=== PATIENT | male | born 1985 | race Caucasian/White ===

== ENCOUNTER 2021-11-09 09:15 | Day surgery (SDC) | payer OTHER ==
[2021-11-07 14:25] VITALS: BMI 27.6
--- NOTE | 2021-11-08 17:57 | P.GSHP ---
History of Present Illness H&P Date: 11/09/21 Chief Complaint: Pilonidal cyst 36-year-old male seen in the office in September. Patient with a history of pilonidal cyst symptoms for the last 12 years or so. Says he has had his pilonidal cyst abscess last in the ER approximately 8-10 times over the years. He had an excisional surgery performed 2-3 years ago at an outside institution. Unfortunately his symptoms recurred approximately 1 year later. This generated the patient had a reexcision of the pilonidal cyst. Closure was performed both times. After this most recent episode he started having drainage very shortly after the procedure. Now having intermittent flareups with intermittent episodes of drainage and pain. No fevers. No recent antibiotic use. Past Medical History Past Medical History: GERD/Reflux, Osteoarthritis (OA), Pneumonia History of Any Multi-Drug Resistant Organisms: None Reported Additional Past Surgical History / Comment(s): pilonidal cyst surgery x 2, oral surgery Past Anesthesia/Blood Transfusion Reactions: No Reported Reaction Smoking Status: Current every day smoker - Past Family History Mother Family Medical History: No Reported History Medications and Allergies Home Medications Medication Instructions Recorded Confirmed Type Acetaminophen [Tylenol] 500 mg PO DIRECTED PRN 11/07/21 11/07/21 History Dicyclomine [Bentyl] 10 mg PO TID 11/07/21 11/07/21 History Prilosec(Dose Unknown) 1 tab PO 1800 11/07/21 11/07/21 History Vit D (Dose Unknown) 1 tab PO MO 11/07/21 11/07/21 History Allergies Allergy/AdvReac Type Severity Reaction Status Date / Time No Known Allergies Allergy Verified 11/07/21 14:16 Surgical - Exam Physical exam: General: Well-developed, well-nourished HEENT: Normocephalic, sclerae nonicteric Abdomen: Nontender, nondistended Extremities: No edema, pilonidal region with previous scar noted, small wound present in the mid aspect of the incision with purulent drainage, wound measures 3-4 mm in diameter. There is some induration and elevation of the tissues in that area with diffuse tenderness that is mild to moderate in severity. No erythema. There is a second area of sinus opening at the most inferior aspect of the previous scar. Neuro: Alert and oriented Assessment and Plan (1) Pilonidal cyst Narrative/Plan: 36-year-old male with recurrent pilonidal disease. Options discussed with the patient. We'll proceed with excision recurrent pilonidal cyst with plans to leave the wound open at this time. Risks of bleeding, infection, scarring, poor wound healing, recurrence, chronic wound formation, pain, numbness reviewed. Patient understands would like to proceed. Status: Acute Code(s): L05.91 - PILONIDAL CYST WITHOUT ABSCESS SNOMED Code(s): 19443851
[~2021-11-09 09:15] MED LIST: ACETAMINOPHEN TAB 500 MG TAB PO PRN; HEPARIN SODIUM,PORCINE/PF 5,000 UNIT/0.5 ML SYRINGE SQ PRN; metroNIDAZOLE-NS PMX 500 MG in SALINE 1 100ML.BAG IVPB PRN
[2021-11-09] MEDS ORDERED: LACTATED RINGERS 1,000 ML IV SCH (09:26)
[2021-11-09] MEDS ORDERED: MIDAZOLAM 2 MG/2 ML VIAL IV PRN (09:26)
[2021-11-09] MEDS ORDERED: DEXAMETHASONE SOD PHOSPHATE 4 MG/ML 1 ML VIAL IV ONE (09:26)
[2021-11-09] MEDS ORDERED: ONDANSETRON 4 MG/2 ML VIAL IVP ONE (09:26)
[2021-11-09] MEDS ORDERED: SCOPOLAMINE 1.5MG/72HR PATCH TRANSDERM ONE (09:26)
[2021-11-09 09:45] VITALS: RESP 16
[2021-11-09] MEDS ORDERED: LIDOCAINE 1% INJ 10MG/ML (20 ML MDV) ONE (11:57)
[2021-11-09] MEDS ORDERED: .fentaNYL (PF) 50 MCG/ML 2 ML AMP ONE (11:57)
[2021-11-09] MEDS ORDERED: PROPOFOL 10 MG/ML 20 ML VIAL IV ONE (11:57)
[2021-11-09] MEDS ORDERED: KETAMINE 10 MG/ML 20 ML VIAL ONE (11:57)
[2021-11-09] MEDS ORDERED: SUCCINYLCHOLINE CHLORIDE 100 MG/5 ML SYR IV ONE (11:57)
[2021-11-09] MEDS ORDERED: MIDAZOLAM 2 MG/2 ML VIAL ONE (11:57)
[2021-11-09] MEDS ORDERED: BUPIVACAINE (PF) 0.25% 30 ML VIAL SQ ONE (12:29)
[2021-11-09] MEDS ORDERED: LACTATED RINGERS 1,000 ML IV ONE (12:42)
[2021-11-09] MEDS: HYDROmorphone 0.5 MG/0.5 ML SYRINGE IVP PRN ×5 (13:07→13:44)
[2021-11-09 13:10] VITALS: TEMP 96.8
[2021-11-09] MEDS ORDERED: HYDROcodone/APAP 5-325MG 1 EACH TAB PO PRN (13:22)
[2021-11-09] MEDS ORDERED: NALOXONE 0.4 MG/ML 1 ML VIAL IV PRN (13:22)
[2021-11-09] MEDS ORDERED: HYDROmorphone 0.5 MG/0.5 ML SYRINGE IVP PRN (13:22)
--- NOTE | 2021-11-09 13:26 | P.OP ---
Date of Procedure: 11/09/21 Procedure(s) Performed: PREOPERATIVE DIAGNOSIS: Recurrent pilonidal cyst POSTOPERATIVE DIAGNOSIS: Same PROCEDURE: Pilonidal cystectomy SURGEON: Hitesh CHOUDHURYL: Minimal ANESTHESIA: General COMPLICATIONS: None OPERATIVE PROCEDURE: Patient was placed prone on the operating table after general anesthesia was achieved. The gluteal crease was prepped and draped in usual sterile fashion after the patient was placed in the prone jackknife position. The previous scar and the area of induration and the large sinus o pening inferiorly were excised sharply. The subcutaneous tissues were divided using electrocautery. Some extension of the cyst cavity with purulence extended to the right superior aspect of our dissection. This was fully excised. Cultures were taken. The area was irrigated with saline. There was no extension to the underlying fascia overlying the sacrum or coccyx. Because of the recurrent nature we had already decided to leave this wound open. After irrigating and localizing the operative site the wound was packed with Amee roll gauze lightly moistened with saline. Sterile water dressings were then applied. DISPOSITION: Stable to recovery room
[2021-11-09] MEDS ORDERED: HYDROcodone/APAP 7.5-325MG 1 EACH TAB ONE (14:29)
[2021-11-09] MEDS ORDERED: HYDROcodone/APAP 7.5-325MG 1 EACH TAB PO ONE (14:30)
[2021-11-09 16:30] VITALS: BP 138/87; PULSE 62
== END 2021-11-09 16:32 | disposition home or self-care (01) ==
LOC: OR 09:15
PROVIDERS: ATTEND Surgery
DX: L05.91 Pilonidal cyst without abscess (principal); K21.9 Gastro-esophageal reflux disease without esophagitis; M19.90 Unspecified osteoarthritis, unspecified site; F17.210 Nicotine dependence, cigarettes, uncomplicated; Z79.899 Other long term (current) drug therapy
CPT/HCPCS: 87070; 87205; 87075; 11770; J2250; J1100; J2405; J2001; J3010; J0330; J2704; J1170; J1644; 88304

== ENCOUNTER 2022-05-08 10:36 | Day surgery (SDC) | payer OTHER ==
[2022-05-07 11:23] VITALS: BMI 27.1
[~2022-05-08 10:36] MED LIST changes: -ACETAMINOPHEN TAB 500 MG TAB PO PRN; -HEPARIN SODIUM,PORCINE/PF 5,000 UNIT/0.5 ML SYRINGE SQ PRN; +LACTATED RINGERS 1,000 ML IV SCH; +LIDOCAINE 1% (10MG/ML) FOR IV START INTRADERMA PRN; -metroNIDAZOLE-NS PMX 500 MG in SALINE 1 100ML.BAG IVPB PRN
[2022-05-08 11:01] VITALS: TEMP 98.1
[2022-05-08] MEDS ORDERED: MIDAZOLAM 2 MG/2 ML VIAL ONE (11:45)
[2022-05-08] MEDS ORDERED: PROPOFOL 10 MG/ML 20 ML VIAL IV ONE (11:45)
[2022-05-08] MEDS ORDERED: LIDOCAINE 2% INJ 20 MG/ML (2 ML VIAL) ONE (11:45)
--- NOTE | 2022-05-08 11:57 | P.PCN ---
Date of Procedure: 05/08/22 Procedure(s) Performed: BRIEF HISTORY: Patient is a 36-year-old pleasant white male scheduled for an elective colonoscopy as a part of the last 1 year duration. He has bowel movements anywhere from 10-15 a day which are loose to watery in consistency but no blood or mucus in the stool. He was started on Lomotil 3 weeks ago and since then his symptoms are gradually improving. Scheduled for colonoscopy to rule out inflammatory bowel PROCEDURE PERFORMED: Colonoscopy with random biopsies. PREOPERATIVE DIAGNOSIS: Chronic diarrhea of 1 year duration. IV sedation per Anesthesia. PROCEDURE: After informed consent was obtained, the patient, was brought into the endoscopy unit. IV sedation was administered by Anesthesia under continuous monitoring. Digital rectal examination was normal. Initially the Olympus CF-160 flexible video colonoscope was then inserted in the rectum, gradually advanced i nto the cecum without any difficulty. Careful examination was performed as the scope was gradually being withdrawn. Ileocecal valve and the appendiceal orifice were visualized and appeared normal. Prep was excellent. Terminal ileum appeared normal.Biopsies were done from the terminal ileum. Mucosa of the cecum, ascending colon, transverse colon, descending colon, sigmoid colon, and rectum appeared normal. Retroflexion was performed in the rectum and no lesions were seen. Biopsies were done from ascending and descending colon to rule out microscopic/collagenous colitis. The patient tolerated the procedure well. IMPRESSION: Normal-appearing colon from rectum to cecum with no evidence of colitis or colorectal neoplasia . Normal-appearing terminal ileum. RECOMMENDATIONS: Findings of this examination were discussed with the patient as well as his family. He was advised to follow with the biopsy results. He will continue with Lomotil as needed..
[2022-05-08 12:37] VITALS: BP 150/93; PULSE 58; RESP 15
== END 2022-05-08 12:55 | disposition home or self-care (01) ==
LOC: ORWHC2ENDO 10:36
PROVIDERS: ATTEND Internal Medicine Gastroenterology
DX: R19.7 Diarrhea, unspecified (principal); F17.210 Nicotine dependence, cigarettes, uncomplicated; Z79.899 Other long term (current) drug therapy; Z88.8 Allergy status to other drugs, medicaments and biological substances; Z98.890 Other specified postprocedural states
CPT/HCPCS: 88305; 45380; J2250; J2704; J2001

== ENCOUNTER 2025-03-23 15:18 | Observation (INO) | payer OTHER ==
[2025-03-23] MEDS: HYDROmorphone 1 MG/ML 1 ML SYRINGE IVP STA ×2 (16:29→18:15)
[2025-03-23] MEDS: METOCLOPRAMIDE 5 MG/ML 2 ML VIAL IVP STA (16:29)
[2025-03-23] MEDS: diphenhydrAMINE 50 MG/ML 1 ML VIAL IVP STA (16:29)
[2025-03-23 16:34] LABS: Basophils # (A) 0.04 10*3/uL (0.00-0.10); Basophils % (A) 0.2 %; HCT 47.6 % (39.6-50.0); HGB 16.9 g/dL (13.0-17.0); Immature Platelet Fraction 15.6 % (1.1-6.1); Lymphocytes # (A) 1.41 10*3/uL (0.90-5.00); Lymphocytes % (A) 7.6 %; MCH 32.7 pg (27.0-32.0); MCHC 35.5 g/dL (32.0-37.0); MCV 92.1 fL (80.0-97.0); Mean Platelet Volume 13.5 fL (9.5-12.2); Monocytes # (A) 0.86 10*3/uL (0.20-1.00); Monocytes % (A) 4.7 %; Neutrophils % (A) 87.1 %; Platelet Count 173 10*3/uL (140-440); RBC 5.17 10*6/uL (4.40-5.60); RDW 12.7 % (11.5-14.5); WBC 18.49 10*3/uL (4.50-10.00)
[2025-03-23 16:45] LABS: ALT 37 U/L (4-49); AST 35 U/L (17-59); African American GFR (CKD) >90 (>60 ml/min/1.73 sqM); Alkaline Phosphatase 133 U/L (38-126); Amylase 142 U/L (30-110); Anion Gap 16 mmol/L; Blood Urea Nitrogen 19 mg/dL (9-20); Calcium 10.3 mg/dL (8.4-10.2); Carbon Dioxide 25 mmol/L (22-30); Chloride 97 mmol/L (98-107); Glucose 180 mg/dL (74-99); Non-African American GFR(CKD) >90 (>60 ml/min/1.73 sqM); Sodium 138 mmol/L (137-145); Total Bilirubin 0.8 mg/dL (0.2-1.3); Total Protein 8.3 g/dL (6.3-8.2)
[2025-03-23] MEDS: LACTATED RINGERS 1,000 ML IV SCH (16:45)
[2025-03-23 16:54] LABS: Lipase 2887 U/L (23-300)
--- NOTE | 2025-03-23 17:49 | CT ---
EXAMINATION TYPE: CT abdomen pelvis w con DATE OF EXAM: 03/23/2025 5:24 PM COMPARISON: None CLINICAL INDICATION: Male, 39 years old with history of diffuse abd pain; Pt arrives with c/o abdomin al pain that started this morning. TECHNIQUE: Axial CT abdomen pelvis w con;Sagittal and coronal reformats were created on a separate w orkstation. Contrast used:100 ml mL of Isovue 300 with IV Contrast, (none if empty) Oral contrast used: without Oral Contrast (none if empty) CT DLP: 932.3 mGycm, Automated exposure control for dose reduction was used. FINDINGS: LOWER CHEST: Unremarkable ABDOMEN LIVER: Unremarkable GALLBLADDER AND BILE DUCTS: No evidence for cholelithiasis or choledocholithiasis. PANCREAS: There is fluid around the pancreas and duodenum. Heterogenous appearance of the pancreas pa renchyma. SPLEEN: Unremarkable. ADRENAL GLANDS: Unremarkable. KIDNEYS AND URETERS: No evidence of hydronephrosis or obstructing renal calculus. The ureters are unr emarkable. PELVIS BLADDER: No evidence for wall thickening or mass given limitations of exam. REPRODUCTIVE: Unremarkable. ABDOMEN & PELVIS STOMACH AND BOWEL: No evidence of bowel obstruction. The appendix is normal. PERITONEUM/RETROPERITONEUM: No evidence of pneumoperitoneum or free fluid. VASCULATURE: No evidence of aortic aneurysm. MUSCULOSKELETAL: No acute osseous abnormalities LYMPH NODES: No gross evidence for lymphadenopathy. SOFT TISSUE/ABDOMINAL WALL: Fat-containing umbilical hernia. IMPRESSION: Extensive fluid around the pancreas and duodenum correlate for pancreatitis with serum lipase. No veto dence for choledocholithiasis. [facility], , 03/23/2025 5:47 PM
--- NOTE | 2025-03-23 18:23 | ED ---
Abdominal Pain HPI - General Chief Complaint: Abdominal Pain Stated Complaint: Abd Pain Time Seen by Provider: 03/23/25 15:25 Source: patient Mode of arrival: wheelchair Limitations: no limitations - History of Present Illness Initial Comments: 39-year-old male with history of alcohol abuse who presents to the emergency department reporting nausea, vomiting and diffuse abdominal pain. 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 His significant other is at bedside and states that the patient has been drinking heavily for the past 2 days. Patient has not drink anything today. He has had several episodes of nonbilious, nonbloody vomiting. Also reports to diffuse generalized abdominal pain. He did not take anything at home before coming in. No fevers. No history of abdominal surgeries. Denies any changes in his bowel or bladder habits. No other alleviating, precipitating or modifying factors - Related Data Home Medications Medication Instructions Recorded Confirmed Pantoprazole Sodium [Protonix] 20 mg PO DAILY 03/23/25 03/23/25 traZODone HCL 150 mg PO HS 03/23/25 03/23/25 Previous Rx's Medication Instructions Recorded Docusate [Colace] 100 mg PO BID #60 cap 03/26/25 HYDROcodone/APAP 5-325MG [[place] 1 tab PO Q6HR PRN 3 Days #12 tab 03/26/25 5-325] Nicotine 14Mg/24Hr Patch [Habitrol] 1 patch TRANSDERM DAILY #7 patch 03/26/25 Allergies Allergy/AdvReac Type Severity Reaction Status Date / Time No Known Allergies Allergy Verified 03/23/25 16:49 Review of Systems ROS Statement: Those systems with pertinent positive or pertinent negative responses have been documented in the HPI. ROS Other: All systems not noted in ROS Statement are negative. Past Medical History Past Medical History: GERD/Reflux, Osteoarthritis (OA), Pneumonia History of Any Multi-Drug Resistant Organisms: None Reported Additional Past Surgical History / Comment(s): Pilonidal cyst surgery X3, oral surgery. Past Anesthesia/Blood Transfusion Reactions: No Reported Reaction Past Psychological History: No Psychological Hx Reported Smoking Status: Current every day smoker Past Alcohol Use History: Occasional Past Drug Use History: Marijuana - Past Family History Mother Family Medical History: No Reported History General Exam Limitations: no limitations General appearance: alert, in no apparent distress Head exam: Present: atraumatic, normocephalic, normal inspection Eye exam: Present: normal appearance, PERRL, EOMI. Absent: scleral icterus, conjunctival injection, periorbital swelling ENT exam: Present: normal exam, mucous membranes moist Neck exam: Present: normal inspection. Absent: tenderness, meningismus, lymphadenopathy Respiratory exam: Present: normal lung sounds bilaterally. Absent: respiratory distress, wheezes, rales, rhonchi, stridor Cardiovascular Exam: Present: regular rate, normal rhythm, normal heart sounds. Absent: systolic murmur, diastolic murmur, rubs, gallop, clicks GI/Abdominal exam: Present: soft, tenderness (epigastric), normal bowel sounds. Absent: distended, guarding, rebound, rigid Extremities exam: Present: normal inspection, full ROM, normal capillary refill. Absent: tenderness, pedal edema, joint swelling, calf tenderness Back exam: Present: normal inspection Neurological exam: Present: alert, oriented X3, CN II-XII intact Psychiatric exam: Present: normal affect, normal mood Skin exam: Present: warm, dry, intact, normal color. Absent: rash Course Vital Signs 03/23/25 03/23/25 03/23/25 15:19 18:21 21:00 Temperature 97.5 F L Pulse Rate 66 71 63 Respiratory 16 16 18 Rate Blood Pressure 194/108 201/119 204/131 O2 Sat by Pulse 100 99 99 Oximetry 03/24/25 03/24/25 03/24/25 00:00 04:00 05:00 Temperature Pulse Rate 94 73 Respiratory 17 17 Rate Blood Pressure 171/115 166/112 156/106 O2 Sat by Pulse 98 95 Oximetry 03/24/25 03/24/25 03/24/25 06:00 06:36 07:00 Temperature Pulse Rate 101 H 101 H Respiratory 18 17 Rate Blood Pressure 159/108 151/100 142/96 O2 Sat by Pulse 96 98 Oximetry 03/24/25 03/24/25 03/24/25 09:30 14:30 17:28 Temperature 98.7 F Pulse Rate 96 100 71 Respiratory 18 16 17 Rate Blood Pressure 159/112 152/93 133/101 O2 Sat by Pulse 98 97 97 Oximetry Medical Decision Making - Medical Decision Making Was pt. sent in by a medical professional or institution (, PA, FUNERAL DIRECTOR/EMBALMER/OWNER, urgent care, hospital, or fci...) When possible be specific @ -No Did you speak to anyone other than the patient for history (EMS, parent, family, police, friend...)? What history was obtained from this source @ -Spoke with the significant other for history who states that the patient has a history of alcohol abuse and pancreatitis Did you review nursing and triage notes (agree or disagree)? Why? @ -I reviewed and agree with nursing and triage notes Were old charts reviewed (outside hosp., previous admission, EMS record, old EKG, old radiological studies, urgent care reports/EKG's, fci records)? Report findings @ -No old charts were reviewed Differential Diagnosis (chest pain, altered mental status, abdominal pain women, abdominal pain men, vaginal bleeding, weakness, fever, dyspnea, syncope, headache, dizziness, GI bleed, back pain, seizure, CVA, palpatations, mental health, musculoskeletal)? @ -Differential Abdominal Pain Men: Appendicitis, cholecystitis, diverticulosis, ischemic bowel, pancreatitis, hepatitis, UTI, gastroenteritis, AAA, incarcerated hernia, bowel obstruction, constipation, inflammatory bowel, hepatitis, peptic ulcer disease, splenic infarction, perforated viscus, testicular torsion, this is not meant to be an all-inclusive list EKG interpreted by me (3pts min.). @ -Not done X-rays interpreted by me (1pt min.). @ -None done CT interpreted by me (1pt min.). @ -Yes which demonstrates signs of pancreatitis U/S interpreted by me (1pt. min.). @ -None done What testing was considered but not performed or refused? (CT, X-rays, U/S, labs)? Why? @ -None What meds were considered but not given or refused? Why? @ -None Did you discuss the management of the patient with other professionals (professionals i.e. , PA, FUNERAL DIRECTOR/EMBALMER/OWNER, lab, RT, psych nurse, clinical social worker, girls tennis coach, teacher, medical officer, case management associate)? Give summary @ -I spoke with Dionne from [facility] Was smoking cessation discussed for >3mins.? @ -No Was critical care preformed (if so, how long)? @ -No Were there social determinants of health that impacted care today? How? (Homelessness, low income, unemployed, alcoholism, drug addiction, transportation, low edu. Level, literacy, decrease access to med. care, retirement, rehab)? @ -No Was there de-escalation of care discussed even if they declined (Discuss DNR or withdrawal of care, Hospice)? DNR status @ -No What co-morbidities impacted this encounter? (DM, HTN, Smoking, COPD, CAD, Cancer, CVA, ARF, Chemo, Hep., AIDS, mental health diagnosis, sleep apnea, morbid obesity)? @ -Alcohol abuse, history of pancreatitis Was patient admitted / discharged? Hospital course, mention meds given and route, prescriptions, significant lab abnormalities, going to OR and other pertinent info. @ -Upon arrival patient seen and evaluated in room 22. Thorough history and physical exam was performed. IV access was established. Patient was administered pain and nausea medications. Laboratory studies are conducted and CT was performed. Patient has laboratory and CT findings concerning for acute pancreatitis. Patient will be admitted. I spoke with Dionne from [facility]. Pain and nausea medications are ordered. Patient is instructed that he needs to d iscontinue use of alcohol. Patient was agreeable to admission he was taken to the floor in stable condition Undiagnosed new problem with uncertain prognosis? @ -No Drug Therapy requiring intensive monitoring for toxicity (Heparin, Nitro, Insulin, Cardizem)? @ -No Were any procedures done? @ -No Diagnosis/symptom? @ -Acute epigastric abdominal pain, acute pancreatitis, alcohol abuse Acute, or Chronic, or Acute on Chronic? @ -Acute on chronic Uncomplicated (without systemic symptoms) or Complicated (systemic symptoms)? @ -Complicated Side effects of treatment? @ -No Exacerbation, Progression, or Severe Exacerbation? @ -No Poses a threat to life or bodily function? How? (Chest pain, USA, MA, pneumonia, PE, COPD, DKA, ARF, appy, cholecystitis, CVA, Diverticulitis, Homicidal, Suicidal, threat to staff... and all critical care pts) @ -No - Lab Data Result diagrams: 03/25/25 06:11 03/25/25 06:11 Lab Results 03/23/25 03/23/25 03/23/25 Range/Units 16:19 16:19 16:19 WBC 18.49 H (4.50-10.00) 10*3/uL RBC 5.17 (4.40-5.60) 10*6/uL Hgb 16.9 (13.0-17.0) g/dL Hct 47.6 (39.6-50.0) % MCV 92.1 (80.0-97.0) fL MCH 32.7 H (27.0-32.0) pg MCHC 35.5 (32.0-37.0) g/dL Plt Count 173 (140-440) 10*3/uL MPV 13.5 H (9.5-12.2) fL Immature Gran % (Auto) 0.4 % Neutrophils % 87.1 % Lymphocytes % 7.6 % Monocytes % 4.7 % Eosinophils % 0.0 % Basophils % 0.2 % Immature Gran # 0.08 H (0.00-0.04) 10*3/uL Neutrophils # 16.10 H (1.80-7.70) 10*3/uL Lymphocytes # 1.41 (0.90-5.00) 10*3/uL Monocytes # 0.86 (0.20-1.00) 10*3/uL Eosinophils # 0.00 L (0.04-0.35) 10*3/uL Basophils # 0.04 (0.00-0.10) 10*3/uL Immature Plt Fraction 15.6 H (1.1-6.1) % Sodium 138 (137-145) mmol/L Potassium 4.0 (3.5-5.1) mmol/L Chloride 97 L (98-107) mmol/L Carbon Dioxide 25 (22-30) mmol/L Anion Gap 16 mmol/L BUN 19 (9-20) mg/dL Creatinine 0.99 (0.66-1.25) mg/dL Est GFR (CKD-EPI)AfAm >90 (>60 ml/min/1.73 sqM) Est GFR (CKD-EPI)NonAf >90 (>60 ml/min/1.73 sqM) Glucose 180 H (74-99) mg/dL Lactic Ac Sepsis Rflx Plasma Lactic Acid Serafin 4.3 H* (0.7-2.0) mmol/L Calcium 10.3 H (8.4-10.2) mg/dL Total Bilirubin 0.8 (0.2-1.3) mg/dL AST 35 (17-59) U/L ALT 37 (4-49) U/L Alkaline Phosphatase 133 H (38-126) U/L Total Protein 8.3 H (6.3-8.2) g/dL Albumin 5.0 (3.5-5.0) g/dL Amylase 142 H (30-110) U/L Lipase 2887 H (23-300) U/L Serum Alcohol mg/dL 03/23/25 03/23/25 Range/Units 16:49 18:21 WBC (4.50-10.00) 10*3/uL RBC (4.40-5.60) 10*6/uL Hgb (13.0-17.0) g/dL Hct (39.6-50.0) % MCV (80.0-97.0) fL MCH (27.0-32.0) pg MCHC (32.0-37.0) g/dL Plt Count (140-440) 10*3/uL MPV (9.5-12.2) fL Immature Gran % (Auto) % Neutrophils % % Lymphocytes % % Monocytes % % Eosinophils % % Basophils % % Immature Gran # (0.00-0.04) 10*3/uL Neutrophils # (1.80-7.70) 10*3/uL Lymphocytes # (0.90-5.00) 10*3/uL Monocytes # (0.20-1.00) 10*3/uL Eosinophils # (0.04-0.35) 10*3/uL Basophils # (0.00-0.10) 10*3/uL Immature Plt Fraction (1.1-6.1) % Sodium (137-145) mmol/L Potassium (3.5-5.1) mmol/L Chloride (98-107) mmol/L Carbon Dioxide (22-30) mmol/L Anion Gap mmol/L BUN (9-20) mg/dL Creatinine (0.66-1.25) mg/dL Est GFR (CKD-EPI)AfAm (>60 ml/min/1.73 sqM) Est GFR (CKD-EPI)NonAf (>60 ml/min/1.73 sqM) Glucose (74-99) mg/dL Lactic Ac Sepsis Rflx Y Plasma Lactic Acid Serafin (0.7-2.0) mmol/L Calcium (8.4-10.2) mg/dL Total Bilirubin (0.2-1.3) mg/dL AST (17-59) U/L ALT (4-49) U/L Alkaline Phosphatase (38-126) U/L Total Protein (6.3-8.2) g/dL Albumin (3.5-5.0) g/dL Amylase (30-110) U/L Lipase (23-300) U/L Serum Alcohol <10 mg/dL Disposition Clinical Impression: Abdominal pain, Pancreatitis, Nausea and vomiting, Leukocytosis, Lactic acidosis Disposition: ADMITTED IP TO THIS [facility] Condition: Stable Is patient prescribed a controlled substance at d/c from ED?: No Time of Disposition: 18:49 Decision to Admit Reason: Admit from EC Decision Date: 03/23/25 Decision Time: 18:49
[2025-03-23] MEDS ORDERED: NALOXONE 0.4 MG/ML 1 ML VIAL IV PRN (18:49)
[2025-03-23] MEDS ORDERED: LORazepam 2 MG/ML INJ IV PRN (18:57)
[2025-03-23] MEDS: SODIUM CHLORIDE 0.9% 1,000 ML IV SCH (19:22)
[2025-03-23] MEDS: PANTOPRAZOLE 40 MG/10 ML VIAL IV SCH (19:22)
[2025-03-23 22:04] LABS: Appearance,Urine Clear (Clear); Bilirubin,Urine Negative (Negative); Blood,Urine Trace (Negative); Budding Yeast,Urine Rare /hpf; Color,Urine Colorless; Glucose,Urine (UA) Negative (Negative); Hyaline Casts,Urine 8 /lpf (0-2); Ketones,Urine Negative (Negative); Leukocyte Esterase,Urine Negative (Negative); Mucus,Urine Rare /hpf; Nitrite,Urine Negative (Negative); PH, Urine 5.5 (5.0-8.0); Protein,Urine 1+ (Negative); RBC,Urine 1 /hpf (0-5); Specific Gravity,Urine >1.050 (1.001-1.035); Urobilinogen,Urine <2.0 mg/dL (<2.0); WBC,Urine 1 /hpf (0-5)
[2025-03-23] MEDS: traZODone HCL 50 MG TAB PO SCH (22:50)
[2025-03-23] MEDS: LORazepam 2 MG/ML INJ IV PRN (22:51)
[2025-03-23] MEDS: HYDROmorphone 1 MG/ML 1 ML SYRINGE IVP PRN (22:52)
[2025-03-24] MEDS: hydrALAZINE HCL 20 MG/ML 1 ML VIAL IVP STA (04:35)
[2025-03-24] MEDS: LORazepam 2 MG/ML INJ IV PRN (08:35)
[2025-03-24] MEDS: ONDANSETRON 4 MG/2 ML VIAL IVP PRN (10:14)
[2025-03-24 10:21] LABS: Basophils # (A) 0.03 X 10*3/uL (0.00-0.10); Basophils % (A) 0.2 %; Eosinophils # (A) 0.01 X 10*3/uL (0.04-0.35); Eosinophils % (A) 0.1 %; HCT 48.6 % (39.6-50.0); HGB 16.5 g/dL (13.0-17.0); Lymphocytes # (A) 0.73 X 10*3/uL (0.90-5.00); Lymphocytes % (A) 5.5 %; MCH 31.7 pg (27.0-32.0); MCV 93.5 FL (80.0-97.0); Mean Platelet Volume 13.1 FL (9.5-12.2); Monocytes # (A) 0.83 X 10*3/uL (0.20-1.00); Monocytes % (A) 6.3 %; NRBC Per 100 WBC 0 X 10*3/uL (0.00-0.01); Neutrophils # (A) 11.53 X 10*3/uL (1.80-7.70); Neutrophils % (A) 87.6 %; Platelet Count 148 X 10*3/uL (140-440); RDW 13.2 % (11.5-14.5); WBC 13.17 X 10*3/uL (4.50-10.00)
--- NOTE | 2025-03-24 14:43 | P.HPIM ---
History of Present Illness H&P Date: 03/24/25 This is a 39 year old male with medical history of alcohol use, history of pancreatitis. He comes with 2 day history of abdominal pain states it began Wenes morning. He does report drinking 6 to 8 shots of fireball daily. His last drink was Friday, he has been on a month to month and a half binge. Prior to that he has been sober. He has history of pancreatitis in the past as well as chronic diarrhea. States he was on bentyl and imodium but then developed issues with constipation and ileus. He states the HYDRAULICS ENGINEER at Dr [facility] office told him to stop the bentyl and imodium. He states he has been having loose stools recently feels since he began drinking again and was taking imodium. He is now com plaining of bloating and lower abdominal pain. He is also having sharp epigastric pains and hiccuping. His abdominal pelvis CT reveals pancreatitis. Amylase and lipase were elevated at 142 and 2887. He was admitted to the hospital with IV fluids resuscitation and started on clear liquid diet. There is concern for ileus and he states he has had ileus in the past. He can be downgraded to the medical floor and general surgery will be consulted. Review of Systems Constitutional: Denied any fatigue denied any fever. Cardio vascular: denied any chest pain, palpitations Gastrointestinal: denied any nausea, vomiting, Reports diarrhea and abdominal pain Pulmonary: Denied any shortness of breath cough Neurologic denied any new focal deficits All inpatient medications were reviewed and appropriate changes in these medications as dictated in the interval history and assessment and plan. PHYSICAL EXAMINATION: GENERAL: The patient is alert and oriented x3, not in any acute distress. Well developed, well nourished. HEENT: Pupils are round and equally reacting to light. EOMI. No scleral icterus. No conjunctival pallor. Normocephalic, atraumatic. No pharyngeal erythema. No thyromegaly. CARDIOVASCULAR: S1 and S2 present. No murmurs, rubs, or gallops. PULMONARY: Chest is clear to auscultation, no wheezing or crackles. ABDOMEN: Soft, Epigastric and LLQ tenderness; mild distention, Hypoaactive bowel sounds. No palpable organomegaly. MUSCULOSKELETAL: No joint swelling or deformity. EXTREMITIES: No cyanosis, clubbing, or pedal edema. NEUROLOGICAL: Gross neurological examination did not reveal any focal deficits. SKIN: No rashes. Assessment and Plan Abdominal pain due to pancreatitis Alcoholic pancreatitis Chronic alcohol use Ileus History of IBS GERD Chronic nicotine use 1/2 pack per day smoker GI prophylaxis Full Code Plan Plan Continue IV ativan CIWA protocol IV protonix daily Consult general surgery Continue IV fluids NPO diet Continue IV pain medication discussed with patient to avoid narcotics if possible Monitor electrolytes and renal function Down grade to general medical floor. The impression and plan of care has been dictated by Dionne Devlin, Nurse Practitioner as directed. Dr. Serg MD I have performed a history and physical examination and medical decision making of this patient, discussed the same with the dictator, and agree with the di ctators assessment and plan as written, documented as a scribe. Based on total visit time, I have performed more than 50% of this visit. Past Medical History Past Medical History: GERD/Reflux, Osteoarthritis (OA), Pneumonia History of Any Multi-Drug Resistant Organisms: None Reported Additional Past Surgical History / Comment(s): Pilonidal cyst surgery X3, oral surgery. Past Anesthesia/Blood Transfusion Reactions: No Reported Reaction Past Psychological History: No Psychological Hx Reported Smoking Status: Current every day smoker Past Alcohol Use History: Occasional Past Drug Use History: Marijuana - Past Family History Mother Family Medical History: No Reported History Medications and Allergies Home Medications Medication Instructions Recorded Confirmed Type Diphenox-Atrop 2.5-0.025 mg 1 - 2 tab PO QID PRN 05/07/22 03/23/25 History [Lomotil] Pantoprazole Sodium [Protonix] 20 mg PO DAILY 03/23/25 03/23/25 History traZODone HCL 150 mg PO HS 03/23/25 03/23/25 History Allergies Allergy/AdvReac Type Severity Reaction Status Date / Time No Known Allergies Allergy Verified 03/23/25 16:49 Physical Exam Vitals: Vital Signs Temp Pulse Resp BP Pulse Ox 03/24/25 07:00 101 H 17 142/96 98 03/24/25 06:36 151/100 03/24/25 06:00 101 H 18 159/108 96 03/24/25 05:00 156/106 03/24/25 04:00 73 17 166/112 95 03/24/25 00:00 94 17 171/115 98 04/30/25 21:00 63 18 204/131 99 03/23/25 18:21 71 16 201/119 99 03/23/25 15:19 97.5 F L 66 16 194/108 100 Intake and Output 03/23/25 03/24/25 03/24/25 22:59 06:59 14:59 Other: Weight 81.647 kg Results CBC & Chem 7: 03/24/25 07:40 03/23/25 16:19 Labs: Abnormal Lab Results - Last 24 Hours (Table) 03/23/25 03/23/25 03/23/25 Range/Units 16:19 16:19 16:19 WBC 18.49 H (4.50-10.00) 10*3/uL MCH 32.7 H (27.0-32.0) pg MPV 13.5 H (9.5-12.2) fL Immature Gran # 0.08 H (0.00-0.04) 10*3/uL Neutrophils # 16.10 H (1.80-7.70) 10*3/uL Lymphocytes # (0.90-5.00) X 10*3/uL Eosinophils # 0.00 L (0.04-0.35) 10*3/uL Immature Plt Fraction 15.6 H (1.1-6.1) % Chloride 97 L (98-107) mmol/L Glucose 180 H (74-99) mg/dL Plasma Lactic Acid Serafin 4.3 H* (0.7-2.0) mmol/L Calcium 10.3 H (8.4-10.2) mg/dL Alkaline Phosphatase 133 H (38-126) U/L Total Protein 8.3 H (6.3-8.2) g/dL Amylase 142 H (30-110) U/L Lipase 2887 H (23-300) U/L Ur Specific [place] (1.001-1.035) Urine Protein (Negative) Urine Blood (Negative) Hyaline Casts (0-2) /lpf Urine Mucus (None) /hpf Urine Yeast (Budding) (None) /hpf 03/23/25 03/23/25 03/23/25 Range/Units 19:48 21:39 23:09 WBC (4.50-10.00) 10*3/uL MCH (27.0-32.0) pg MPV (9.5-12.2) fL Immature Gran # (0.00-0.04) 10*3/uL Neutrophils # (1.80-7.70) 10*3/uL Lymphocytes # (0.90-5.00) X 10*3/uL Eosinophils # (0.04-0.35) 10*3/uL Immature Plt Fraction (1.1-6.1) % Chloride (98-107) mmol/L Glucose (74-99) mg/dL Plasma Lactic Acid Serafin 3.3 H* 2.5 H* (0.7-2.0) mmol/L Calcium (8.4-10.2) mg/dL Alkaline Phosphatase (38-126) U/L Total Protein (6.3-8.2) g/dL Amylase (30-110) U/L Lipase (23-300) U/L Ur Specific [place] >1.050 H (1.001-1.035) Urine Protein 1+ H (Negative) Urine Blood Trace H (Negative) Hyaline Casts 8 H (0-2) /lpf Urine Mucus Rare H (None) /hpf Urine Yeast (Budding) Rare H (None) /hpf 03/24/25 Range/Units 07:40 WBC 13.17 H (4.50-10.00) 10*3/uL MCH (27.0-32.0) pg MPV 13.1 H (9.5-12.2) fL Immature Gran # (0.00-0.04) 10*3/uL Neutrophils # 11.53 H (1.80-7.70) 10*3/uL Lymphocytes # 0.73 L (0.90-5.00) X 10*3/uL Eosinophils # 0.01 L (0.04-0.35) 10*3/uL Immature Plt Fraction (1.1-6.1) % Chloride (98-107) mmol/L Glucose (74-99) mg/dL Plasma Lactic Acid Serafin (0.7-2.0) mmol/L Calcium (8.4-10.2) mg/dL Alkaline Phosphatase (38-126) U/L Total Protein (6.3-8.2) g/dL Amylase (30-110) U/L Lipase (23-300) U/L Ur Specific [place] (1.001-1.035) Urine Protein (Negative) Urine Blood (Negative) Hyaline Casts (0-2) /lpf Urine Mucus (None) /hpf Urine Yeast (Budding) (None) /hpf Assessment and Plan Time with Patient: Greater than 30
[2025-03-24] MEDS: NICOTINE 14MG/24HR PATCH TRANSDERM SCH (14:53)
--- NOTE | 2025-03-24 15:25 | P.GSCN ---
History of Present Illness Consult date: 03/24/25 History of present illness: CHIEF COMPLAINT: Abdominal pain HISTORY OF PRESENT ILLNESS: This is a 39-year-old male with a known history of alcoholic pancreatitis. He presents to the hospital with complaints of upper abdominal pain and mid abdomen that started yesterday morning. Patient has had multiple episodes of bilious vomiting. Patient reports his pain does feel similar to his previous pancreatitis episodes. Patient reports that he ate he had been drinking heavily over the last couple of days. He has tried to quit drinking in the past. This is his third episode of pancreatitis the last 1 was about a year ago. Patient had elevated amylase and lipase and CT scan had shown evidence of pancreatitis. Patient has had an ileus in the past and concerned t hat he is developing ileus. Last bowel movement was 2 days ago. He reports he is not passing any gas. He does feel bloated. And has been belching. Patient reports after he is drinking he does have usually multiple bowel movements and does take medications like Imodium and Bentyl to help with his loose bowel movements. He has followed with GI service in the past for irritable bowel syndrome. Colonoscopy in 2021 was normal. He denies any prior abdominal surgeries. Surgical service consulted for ileus. PAST MEDICAL HISTORY: Pancreatitis, GERD, osteoarthritis, pneumonia PAST SURGICAL HISTORY: Pilonidal cyst surgery x 3, oral surgery, MEDICATIONS: See below ALLERGIES: See below SOCIAL HISTORY: No illicit drug use. Heavy alcohol use. Nicotine dependence REVIEW OF SYSTEMS: CONSTITUTIONAL: Denies fever or chills. HEENT: Denies blurred vision, vision changes, or eye pain. Denies hemoptysis CARDIOVASCULAR: Denies chest pain or pressure. RESPIRATORY: No shortness of breath. GASTROINTESTINAL: See HPI for pertinent findings HEMATOLOGIC: Denies bleeding disorders. GENITOURINARY: Denies any blood in urine or increased urinary frequency. SKIN: Denies pruitis. Denies rash. PHYSICAL EXAM: VITAL SIGNS: Reviewed GENERAL: Well-developed in no acute distress. HEENT: No sclera icterus. Extraocular movements grossly intact. Moist buccal mucosa. Head is atraumatic, normocephalic. No nasal drainage. ABDOMEN: Soft. Mildly distended. Epigastric tenderness with palpation. Mild discomfort with palpation of the right upper quadrant and left upper quadrant. Tenderness with palpation mid abdomen above umbilicus NEUROLOGIC: Alert and oriented. Cranial nerves II through XII grossly intact. LABORATORY DATA: WBCs 18 down to 13.17 Hgb 16.5 platelets 148 Sodium 138 potassium 4.0 creatinine 0.99 Lactic acid 4.3 down to 1.9 Total bilirubin 0.8 AST 35 ALT 37 alk phos 133 Amylase 142 lipase 2887 Serum alcohol level less than 10 IMAGING: CT scan abdomen pelvis reports extensive fluid around pancreas and duodenum correlate for pancreatitis, no evidence of choledocholithiasis. ASSESSMENT: 1. Acute alcohol pancreatitis. No evidence of gallstones on CT scan. 2. Chronic alcohol use 3. Prior history of pancreatitis 4. Constipation, history of ileus PLAN: -Keep patient n.p.o. except for ice chips -Add Colace for constipation -Continue IV fluids -Continue pain management -Encourage patient ambulate -Educated patient on abstaining from alcohol use Physician Healthcare Account Manager note has been reviewed by physician. Signing provider agrees with the documented findings, assessment, and plan of care. Past Medical History Past Medical History: GERD/Reflux, Osteoarthritis (OA), Pneumonia History of Any Multi-Drug Resistant Organisms: None Reported Additional Past Surgical History / Comment(s): Pilonidal cyst surgery X3, oral surgery. Past Anesthesia/Blood Transfusion Reactions: No Reported Reaction Past Psychological History: No Psychological Hx Reported Smoking Status: Current every day smoker Past Alcohol Use History: Occasional Past Drug Use History: Marijuana - Past Family History Mother Family Medical History: No Reported History Medications and Allergies Home Medications Medication Instructions Recorded Confirmed Type Diphenox-Atrop 2.5-0.025 mg 1 - 2 tab PO QID PRN 05/07/22 03/23/25 History [Lomotil] Pantoprazole Sodium [Protonix] 20 mg PO DAILY 03/23/25 03/23/25 History traZODone HCL 150 mg PO HS 03/23/25 03/23/25 History Allergies Allergy/AdvReac Type Severity Reaction Status Date / Time No Known Allergies Allergy Verified 03/23/25 16:49 Surgical - Exam Vital Signs Temp Pulse Resp BP Pulse Ox 97.5 F L 66 16 194/108 100 03/23/25 15:19 03/23/25 15:19 03/23/25 15:19 03/23/25 15:19 03/23/25 15:19 Results - Labs 03/24/25 07:40 03/23/25 16:19 Abnormal Lab Results - Last 24 Hours (Table) 03/23/25 03/23/25 03/23/25 Range/Units 16:19 16:19 16:19 WBC 18.49 H (4.50-10.00) 10*3/uL MCH 32.7 H (27.0-32.0) pg MPV 13.5 H (9.5-12.2) fL Immature Gran # 0.08 H (0.00-0.04) 10*3/uL Neutrophils # 16.10 H (1.80-7.70) 10*3/uL Lymphocytes # (0.90-5.00) X 10*3/uL Eosinophils # 0.00 L (0.04-0.35) 10*3/uL Immature Plt Fraction 15.6 H (1.1-6.1) % Chloride 97 L (98-107) mmol/L Glucose 180 H (74-99) mg/dL Plasma Lactic Acid Serafin 4.3 H* (0.7-2.0) mmol/L Calcium 10.3 H (8.4-10.2) mg/dL Alkaline Phosphatase 133 H (38-126) U/L Total Protein 8.3 H (6.3-8.2) g/dL Amylase 142 H (30-110) U/L Lipase 2887 H (23-300) U/L Ur Specific [place] (1.001-1.035) Urine Protein (Negative) Urine Blood (Negative) Hyaline Casts (0-2) /lpf Urine Mucus (None) /hpf Urine Yeast (Budding) (None) /hpf 03/23/25 03/23/25 03/23/25 Range/Units 19:48 21:39 23:09 WBC (4.50-10.00) 10*3/uL MCH (27.0-32.0) pg MPV (9.5-12.2) fL Immature Gran # (0.00-0.04) 10*3/uL Neutrophils # (1.80-7.70) 10*3/uL Lymphocytes # (0.90-5.00) X 10*3/uL Eosinophils # (0.04-0.35) 10*3/uL Immature Plt Fraction (1.1-6.1) % Chloride (98-107) mmol/L Glucose (74-99) mg/dL Plasma Lactic Acid Serafin 3.3 H* 2.5 H* (0.7-2.0) mmol/L Calcium (8.4-10.2) mg/dL Alkaline Phosphatase (38-126) U/L Total Protein (6.3-8.2) g/dL Amylase (30-110) U/L Lipase (23-300) U/L Ur Specific [place] >1.050 H (1.001-1.035) Urine Protein 1+ H (Negative) Urine Blood Trace H (Negative) Hyaline Casts 8 H (0-2) /lpf Urine Mucus Rare H (None) /hpf Urine Yeast (Budding) Rare H (None) /hpf 03/24/25 Range/Units 07:40 WBC 13.17 H (4.50-10.00) 10*3/uL MCH (27.0-32.0) pg MPV 13.1 H (9.5-12.2) fL Immature Gran # (0.00-0.04) 10*3/uL Neutrophils # 11.53 H (1.80-7.70) 10*3/uL Lymphocytes # 0.73 L (0.90-5.00) X 10*3/uL Eosinophils # 0.01 L (0.04-0.35) 10*3/uL Immature Plt Fraction (1.1-6.1) % Chloride (98-107) mmol/L Glucose (74-99) mg/dL Plasma Lactic Acid Serafin (0.7-2.0) mmol/L Calcium (8.4-10.2) mg/dL Alkaline Phosphatase (38-126) U/L Total Protein (6.3-8.2) g/dL Amylase (30-110) U/L Lipase (23-300) U/L Ur Specific [place] (1.001-1.035) Urine Protein (Negative) Urine Blood (Negative) Hyaline Casts (0-2) /lpf Urine Mucus (None) /hpf Urine Yeast (Budding) (None) /hpf Diabetes panel 03/23/25 Range/Units 16:19 Sodium 138 (137-145) mmol/L Potassium 4.0 (3.5-5.1) mmol/L Chloride 97 L (98-107) mmol/L Carbon Dioxide 25 (22-30) mmol/L BUN 19 (9-20) mg/dL Creatinine 0.99 (0.66-1.25) mg/dL Glucose 180 H (74-99) mg/dL Calcium 10.3 H (8.4-10.2) mg/dL AST 35 (17-59) U/L ALT 37 (4-49) U/L Alkaline Phosphatase 133 H (38-126) U/L Total Protein 8.3 H (6.3-8.2) g/dL Albumin 5.0 (3.5-5.0) g/dL Calcium panel 03/23/25 Range/Units 16:19 Calcium 10.3 H (8.4-10.2) mg/dL Albumin 5.0 (3.5-5.0) g/dL Pituitary panel 03/23/25 Range/Units 16:19 Sodium 138 (137-145) mmol/L Potassium 4.0 (3.5-5.1) mmol/L Chloride 97 L (98-107) mmol/L Carbon Dioxide 25 (22-30) mmol/L BUN 19 (9-20) mg/dL Creatinine 0.99 (0.66-1.25) mg/dL Glucose 180 H (74-99) mg/dL Calcium 10.3 H (8.4-10.2) mg/dL Adrenal panel 03/23/25 Range/Units 16:19 Sodium 138 (137-145) mmol/L Potassium 4.0 (3.5-5.1) mmol/L Chloride 97 L (98-107) mmol/L Carbon Dioxide 25 (22-30) mmol/L BUN 19 (9-20) mg/dL Creatinine 0.99 (0.66-1.25) mg/dL Glucose 180 H (74-99) mg/dL Calcium 10.3 H (8.4-10.2) mg/dL Total Bilirubin 0.8 (0.2-1.3) mg/dL AST 35 (17-59) U/L ALT 37 (4-49) U/L Alkaline Phosphatase 133 H (38-126) U/L Total Protein 8.3 H (6.3-8.2) g/dL Albumin 5.0 (3.5-5.0) g/dL
[2025-03-24 15:50] LABS: Blood Urea Nitrogen 14.4 mg/dL (9.0-27.0); Chloride 100 mmol/L (96-109); Glucose 247 mg/dL (70-110); Potassium 4.1 mmol/L (3.5-5.5); Sodium 137 mmol/L (135-145)
[2025-03-24 15:51] LABS: ALT 25 U/L (10-49); AST 25 U/L (14-35); Albumin 3.9 g/dL (3.8-4.9); Albumin/Globulin Ratio 1.62 Ratio (1.60-3.17); Alkaline Phosphatase 96 U/L (41-126); Globulin 2.4 g/dL (1.6-3.3); Total Bilirubin 1.1 mg/dL (0.3-1.2); Total Protein 6.3 g/dL (6.2-8.2)
[2025-03-24 16:04] LABS: Lipase 513 U/L (14-60)
[2025-03-24] MEDS ORDERED: LORazepam 1 MG/0.5 ML VIAL IV PRN ×2 (18:08→18:09)
[2025-03-24] MEDS: LORazepam 1 MG/0.5 ML VIAL IV PRN (18:56)
[2025-03-24] MEDS: ACETAMINOPHEN TAB 325 MG TAB PO PRN (19:47)
[2025-03-24] MEDS: KETOROLAC 15 MG/ML 1 ML VIAL IVP PRN (19:48)
[2025-03-24] MEDS: DOCUSATE 100 MG CAP PO SCH (22:19)
[2025-03-25 06:54] LABS: Basophils # (A) 0.04 10*3/uL (0.00-0.10); Basophils % (A) 0.6 %; Eosinophils # (A) 0.27 10*3/uL (0.04-0.35); Eosinophils % (A) 3.9 %; HCT 40.4 % (39.6-50.0); Lymphocytes # (A) 1.78 10*3/uL (0.90-5.00); Lymphocytes % (A) 25.4 %; MCH 32.9 pg (27.0-32.0); MCHC 33.7 g/dL (32.0-37.0); Mean Platelet Volume 13.2 fL (9.5-12.2); Monocytes # (A) 0.63 10*3/uL (0.20-1.00); Neutrophils # (A) 4.26 10*3/uL (1.80-7.70); Neutrophils % (A) 60.8 %; RBC 4.13 10*6/uL (4.40-5.60); RDW 13.2 % (11.5-14.5)
[2025-03-25 06:56] LABS: HGB 13.6 g/dL (13.0-17.0); MCV 97.8 fL (80.0-97.0)
[2025-03-25 07:07] LABS: ALT 18 U/L (4-49); AST 22 U/L (17-59); African American GFR (CKD) >90 (>60 ml/min/1.73 sqM); Alkaline Phosphatase 67 U/L (38-126); Anion Gap 4 mmol/L; Blood Urea Nitrogen 17 mg/dL (9-20); Calcium 8.9 mg/dL (8.4-10.2); Carbon Dioxide 31 mmol/L (22-30); Chloride 101 mmol/L (98-107); Glucose 141 mg/dL (74-99); Lipase 937 U/L (23-300); Non-African American GFR(CKD) 79 (>60 ml/min/1.73 sqM); Potassium 4.2 mmol/L (3.5-5.1); Sodium 136 mmol/L (137-145); Total Bilirubin 1.3 mg/dL (0.2-1.3); Total Protein 5.5 g/dL (6.3-8.2)
[2025-03-25 07:53] LABS: RBC Morphology Normal
[2025-03-25 07:54] LABS: Platelet Count 94 10*3/uL (140-440)
--- NOTE | 2025-03-25 14:00 | P.PN ---
Subjective Progress Note Date: 03/25/25 This is a 39 year old male with medical history of alcohol use, history of pancreatitis. He comes with 2 day history of abdominal pain states it began Wenes morning. He does report drinking 6 to 8 shots of fireball daily. His last drink was Friday, he has been on a month to month and a half binge. Prior to that he has been sober. He has history of pancreatitis in the past as well as chronic diarrhea. States he was on bentyl and imodium but then developed issues with constipation and ileus. He states the RADIO MECHANIC APPRENTICE at Dr Cr office told him to stop the bentyl and imodium. He states he has been having loose stools recently feels since he began drinking again and was taking imodium. He is now complaini ng of bloating and lower abdominal pain. He is also having sharp epigastric pains and hiccuping. His abdominal pelvis CT reveals pancreatitis. Amylase and lipase were elevated at 142 and 2887. He was admitted to the hospital with IV fluids resuscitation and started on clear liquid diet. There is concern for ileus and he states he has had ileus in the past. He can be downgraded to the medical floor and general surgery will be consulted. 03/25/2025 Patient evaluated in follow up today. Bowel sounds are active today and he has been passing gas and feels he may have BM today. The abdominal pain is improving as well. He is tolerating clears and will be advanced to low fiber for dinner. Lipase improving. Review of Systems Constitutional: Denied any fatigue denied any fever. Cardio vascular: denied any chest pain, palpitations Gastrointestinal: denied any nausea, vomiting, Reports diarrhea and abdominal pain Pulmonary: Denied any shortness of breath cough Neurologic denied any new focal deficits All inpatient medications were reviewed and appropriate changes in these medications as dictated in the interval history and assessment and plan. PHYSICAL EXAMINATION: GENERAL: The patient is alert and oriented x3, not in any acute distress. Well developed, well nourished. HEENT: Pupils are round and equally reacting to light. EOMI. No scleral icterus. No conjunctival pallor. Normocephalic, atraumatic. No pharyngeal erythema. No thyromegaly. CARDIOVASCULAR: S1 and S2 present. No murmurs, rubs, or gallops. PULMONARY: Chest is clear to auscultation, no wheezing or crackles. ABDOMEN: Soft, Epigastric and LLQ tenderness; mild distention, Hypoaactive bowel sounds. No palpable organomegaly. MUSCULOSKELETAL: No joint swelling or deformity. EXTREMITIES: No cyanosis, clubbing, or pedal edema. NEUROLOGICAL: Gross neurological examination did not reveal any focal deficits. SKIN: No rashes. Assessment and Plan Abdominal pain due to pancreatitis Alcoholic pancreatitis Chronic alcohol use Ileus History of IBS GERD Chronic nicotine use 1/2 pack per day smoker GI prophylaxis Full Code Plan Plan Continue stool softener Continue IV ativan CIWA protocol IV protonix daily Consult general surgery Continue IV fluids Advance diet as tolerated to low fiber Continue IV pain medication discussed with patient to avoid narcotics if possible Monitor electrolytes and renal function Down grade to general medical floor. D/C home tomorrow if tolerating increased diet The impression and plan of care has been dictated by Dionne Devlin Nurse Practitioner as directed. Dr. Serg MD I have performed a history and physical examination and medical decision making of this patient, discussed the same with the dictator, and agree with the dictators assessment and plan as written, documented as a scribe. Based on total visit time, I have performed more than 50% of this visit. Objective - Vital Signs Vital signs: Vital Signs Temp 98.4 F 03/25/25 09:06 Pulse 73 03/25/25 11:20 Resp 16 03/25/25 11:20 BP 117/69 03/25/25 11:20 Pulse Ox 98 03/25/25 11:20 FiO2 Intake & Output 03/24/25 03/25/25 03/25/25 18:59 06:59 18:59 Intake Total 945 Output Total 0 Balance 945 Weight 81.647 kg 81.8 kg Intake: IV 5 Invasive Line 1 5 Oral 940 Output: Gastric Drainage 0 Urine 0 Stool 0 Emesis 0 Oral Regurgitation 0 Other 0 Other: Voiding Method Toilet Toilet # Voids 0 # Bowel Movements 0 - Labs CBC & Chem 7: 03/25/25 06:11 03/25/25 06:11 Labs: Abnormal Lab Results - Last 24 Hours (Table) 03/24/25 03/25/25 03/25/25 Range/Units 07:40 06:11 06:11 RBC 4.13 L (4.40-5.60) 10*6/uL MCV 97.8 H D (80.0-97.0) fL MCH 32.9 H (27.0-32.0) pg Plt Count 94 L (140-440) 10*3/uL MPV 13.2 H (9.5-12.2) fL Sodium 136 L (137-145) mmol/L Carbon Dioxide 31 H (22-30) mmol/L Anion Gap 14.00 H (4.00-12.00) mmol/L Glucose 247 H 141 H (70-110) mg/dL Total Protein 5.5 L (6.3-8.2) g/dL Albumin 3.0 L (3.5-5.0) g/dL Lipase 513 H 937 H (14-60) U/L Assessment and Plan Time with Patient: Less than 30
--- NOTE | 2025-03-25 15:02 | P.PN ---
Subjective Progress Note Date: 03/25/25 SURGICAL PROGRESS NOTE CHIEF COMPLAINT: Abdominal pain HISTORY OF PRESENT ILLNESS: Patient reports his epigastric abdominal pain is improving. He denies any nausea or vomiting. He is having flatus. Tolerated clear liquids this afternoon. Afebrile. WBC is down from 13-7.0 LFTs normal PHYSICAL EXAM: VITAL SIGNS: Reviewed. GENERAL: Well-developed in no acute distress. ABDOMEN: Soft. Nondistended. Minimal discomfort epigastric area with palpation NEUROLOGIC: Alert and oriented. Cranial nerves II through XII grossly intact. ASSESSMENT: 1. Acute alcohol pancreatitis. No evidence of gallstones on CT scan. 2. Chronic alcohol use 3. Prior history of pancreatitis 4. Constipation, history of ileus PLAN: - Advance diet to low-fat - Continue stool softener for constipation - No surgical intervention planned - Anticipate discharge tomorrow, if pain is okay and tolerating diet Physician Open Source Developer note has been reviewed by physician. Signing provider agrees with the documented findings, assessment, and plan of care. Objective - Vital Signs Vital signs: Vital Signs Temp 98.4 F 03/25/25 09:06 Pulse 73 03/25/25 11:20 Resp 16 03/25/25 11:20 BP 117/69 03/25/25 11:20 Pulse Ox 98 03/25/25 11:20 FiO2 Intake & Output 03/24/25 03/25/25 03/25/25 18:59 06:59 18:59 Intake Total 945 Output Total 0 Balance 945 Weight 81.647 kg 81.8 kg Intake: IV 5 Invasive Line 1 5 Oral 940 Output: Gastric Drainage 0 Urine 0 Stool 0 Emesis 0 Oral Regurgitation 0 Other 0 Other: Voiding Method Toilet Toilet # Voids 0 # Bowel Movements 0 - Labs CBC & Chem 7: 03/25/25 06:11 03/25/25 06:11 Labs: Abnormal Lab Results - Last 24 Hours (Table) 03/24/25 03/25/25 03/25/25 Range/Units 07:40 06:11 06:11 RBC 4.13 L (4.40-5.60) 10*6/uL MCV 97.8 H D (80.0-97.0) fL MCH 32.9 H (27.0-32.0) pg Plt Count 94 L (140-440) 10*3/uL MPV 13.2 H (9.5-12.2) fL Sodium 136 L (137-145) mmol/L Carbon Dioxide 31 H (22-30) mmol/L Anion Gap 14.00 H (4.00-12.00) mmol/L Glucose 247 H 141 H (70-110) mg/dL Total Protein 5.5 L (6.3-8.2) g/dL Albumin 3.0 L (3.5-5.0) g/dL Lipase 513 H 937 H (14-60) U/L Assessment and Plan Assessment: advance diet as tolerated Time with Patient: Less than 30
[2025-03-26 11:10] VITALS: BP 160/70; PULSE 98; RESP 18; TEMP 98
--- NOTE | 2025-03-26 11:54 | P.PN ---
Subjective Patient seen and evaluated at bedside. Patient doing well, tolerated diet, pain controlled. . Objective - Vital Signs Vital signs: Vital Signs Temp 98.0 F 03/26/25 11:07 Pulse 98 03/26/25 11:07 Resp 18 03/26/25 11:07 BP 160/70 03/26/25 11:07 Pulse Ox 100 03/26/25 11:07 FiO2 Intake & Output 03/25/25 03/26/25 03/26/25 18:59 06:59 18:59 Intake Total 1715 10 245 Output Total 0 0 Balance 1715 10 245 Weight 82 kg Intake: IV 5 10 5 Invasive Line 1 5 10 5 Intake, IV Titration 650 Amount Sodium Chloride 0.9% 1, 650 000 ml @ 130 mls/hr IV . [id number] [facility] Rx#:[id number] Oral 1060 240 Output: Gastric Drainage 0 Urine 0 Stool 0 0 Emesis 0 Oral Regurgitation 0 Other 0 Other: Voiding Method Toilet Toilet Toilet # Voids 3 1 # Bowel Movements 0 1 - Exam gen; nad cv; rrr pul: non labored breathing abd: soft, non distended, minimally tender to palpation, no guarding or rebound tenderness - Labs CBC & Chem 7: 03/25/25 06:11 03/25/25 06:11 Assessment and Plan Assessment: 39 yo male w/ etoh induced pancreatitis -tolerated diet, pain controlled -no gallstones, no surgical intervention -stable for discharge Time with Patient: Greater than 30
--- NOTE | 2025-03-26 16:00 | P.DS ---
Providers Date of admission: 03/23/25 18:49 Attending physician: Juan Robles Consults: 03/24/25 14:26 Consult Physician Routine Consulting Provider: Miguel Garcia Consult Reason/Comments: ileus Do you want consulting provider notified?: Yes Primary care physician: Guillermo Tapia Hospital Course: Final Diagnosis Abdominal pain due to pancreatitis Alcoholic pancreatitis Chronic alcohol use Ileus History of IBS GERD Chronic nicotine use 1/2 pack per day smoker Discharge Disposition Stable for DC home. Patient to advance diet as tolerated and recommending to quit drinking. He is agreeable. Total time taken in discharge planning greater than 35 minutes. Hospital Course This is a 39 year old male with medical history of alcohol use, history of pancreatitis. He comes with 2 day history of abdominal pain states it began morning. He does report drinking 6 to 8 shots of fireball daily. His last drink was Friday, he has been on a month to month and a half binge. Prior to that he has been sober. He has history of pancreatitis in the past as well as chronic diarrhea. States he was on bentyl and imodium but then developed issues with constipation and ileus. He states the OUTBOARD MOTOR INSPECTOR at Dr [facility] office told him to stop the bentyl and imodium. He states he has been having loose stools recently feels since he began drinking again and was taking imodium. He is now complaining of bloating and lower abdominal pain. He is also having sharp epigastric pains and hiccuping. His abdominal pelvis CT reveals pancreatitis. Amylase and lipase were elevated at 142 and 2887. He was admitted to the hospit al with IV fluids resuscitation and started on clear liquid diet. There is concern for ileus and he states he has had ileus in the past. He can be downgraded to the medical floor and general surgery will be consulted. He was monitored closely and diet was advanced. Started on stool softener and has now had bowel movement. He has normal bowel sounds and has been up ambulating. Please see medication reconciliation for a list of current medications. Thank you for allowing us to participate in the care of this patient. The impression and plan of care has been dictated by Dionne Devlin, Nurse Practitioner as directed. Dr. Serg MD I have performed a history and physical examination and medical decision making of this patient, discussed the same with the dictator, and agree with the di ctators assessment and plan as written, documented as a scribe. Based on total visit time, I have performed more than 50% of this visit. Patient Condition at Discharge: Stable Plan - Discharge Summary Discharge Rx Participant: No New Discharge Prescriptions: New Nicotine 14Mg/24Hr Patch [Habitrol] 1 patch TRANSDERM DAILY #7 patch Docusate [Colace] 100 mg PO BID #60 cap HYDROcodone/APAP 5-325MG [Lock[place] 5-325] 1 tab PO Q6HR PRN 3 Days #12 tab PRN Reason: Pain Continue Pantoprazole Sodium [Protonix] 20 mg PO DAILY traZODone HCL 150 mg PO HS Discontinued Diphenox-Atrop 2.5-0.025 mg [Lomotil] 1 - 2 tab PO QID PRN PRN Reason: Diarrhea Discharge Medication List Pantoprazole Sodium [Protonix] 20 mg PO DAILY 03/23/25 [History] traZODone HCL 150 mg PO HS 03/23/25 [History] Docusate [Colace] 100 mg PO BID #60 cap 03/26/25 [Rx] HYDROcodone/APAP 5-325MG [Lockney 5-325] 1 tab PO Q6HR PRN 3 Days #12 tab 03/26/25 [Rx] Nicotine 14Mg/24Hr Patch [Habitrol] 1 patch TRANSDERM DAILY #7 patch 03/26/25 [Rx] Follow up Appointment(s)/Referral(s): Carola Delong MD [STAFF PHYSICIAN] - 2 Weeks (Please call when offices are open to make a follow up appointment ) Guillermo Tapia MD [Primary Care Provider] - 1-2 days (Please call when offices are open to make a follow up appointment ) Patient Instructions/Handouts: Pancreatitis (DC), Low Fat Diet (DC), Abuse of Alcohol (DC) Activity/Diet/Wound Care/Special Instructions: Do not drive while taking norco Diet as tolerated Avoid alcohol Continue stool softeners as needed Discharge/Stand Alone Forms: [facility] [place] Discharge Disposition: HOME SELF-CARE
== END 2025-03-26 12:28 | disposition home or self-care (01) ==
LOC: EC 15:18 → 6NMEDSUR 18:49 → 3SCARD 03-24 01:49
PROVIDERS: ADMIT Hospitalist; ATTEND Hospitalist
DX: K85.20 Alcohol induced acute pancreatitis without necrosis or infection (principal); E87.20 Acidosis, unspecified; F10.10 Alcohol abuse, uncomplicated; K56.7 Ileus, unspecified; K21.9 Gastro-esophageal reflux disease without esophagitis; K59.00 Constipation, unspecified; F17.210 Nicotine dependence, cigarettes, uncomplicated; Z79.899 Other long term (current) drug therapy; Y90.0 Blood alcohol level of less than 20 mg/100 ml; Z87.19 Personal history of other diseases of the digestive system
CPT/HCPCS: 96376 ×5; 96375 ×3; 96361 ×2; 96374; 99285; 36415; 80053 ×3; 82150; 83605 ×2; 83690 ×3; 85025 ×3; 81001; 74177; G0378 ×5; G0480; S4990 ×3; J2060 ×3; J0360; J1200; J2765; J2405; J1171 ×4; J1885 ×2; Q9967; J2470 ×4; 80320

== ENCOUNTER 2025-04-17 21:55 | Emergency (ER) | payer OTHER ==
[2025-04-17 22:01] VITALS: RESP 18
[2025-04-17] MEDS: DEXAMETHASONE SOD PHOSPHATE 10 MG/ML 1 ML VIAL IV STA (22:54)
[2025-04-17] MEDS: HYDROmorphone 1 MG/ML 1 ML SYRINGE IVP STA (22:54)
[2025-04-17 23:30] LABS: HCT 38.6 % (39.6-50.0); HGB 13.4 g/dL (13.0-17.0); RBC 4.14 10*6/uL (4.40-5.60); WBC 10.93 10*3/uL (4.50-10.00)
[2025-04-17 23:31] LABS: Basophils # (A) 0.03 10*3/uL (0.00-0.10); Basophils % (A) 0.3 %; Eosinophils # (A) 0.12 10*3/uL (0.04-0.35); Eosinophils % (A) 1.1 %; Lymphocytes # (A) 1.84 10*3/uL (0.90-5.00); Lymphocytes % (A) 16.8 %; MCH 32.4 pg (27.0-32.0); MCHC 34.7 g/dL (32.0-37.0); MCV 93.2 fL (80.0-97.0); Mean Platelet Volume 13.7 fL (9.5-12.2); Monocytes # (A) 0.96 10*3/uL (0.20-1.00); Monocytes % (A) 8.8 %; Neutrophils # (A) 7.95 10*3/uL (1.80-7.70); Neutrophils % (A) 72.7 %; Platelet Count 121 10*3/uL (140-440); RDW 12.2 % (11.5-14.5)
--- NOTE | 2025-04-17 23:37 | XR ---
EXAM: XR Left Wrist, 2 Views CLINICAL HISTORY: ITS.REASON XR Reason: pain/swelling TECHNIQUE: Frontal and lateral views of the left wrist. COMPARISON: No previous studies. FINDINGS: Bones/joints: Mild to moderate osteoarthritic changes about the left wrist joint are noted. No acute fracture or dislocation. Soft tissues: Soft tissues are unremarkable. No radiopaque foreign body. 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
[2025-04-17 23:40] LABS: ALT 26 U/L (4-49); AST 28 U/L (17-59); African American GFR (CKD) >90 (>60 ml/min/1.73 sqM); Albumin 4.4 g/dL (3.5-5.0); Alkaline Phosphatase 119 U/L (38-126); Anion Gap 10 mmol/L; Blood Urea Nitrogen 14 mg/dL (9-20); C Reactive Protein 4.4 mg/dL (<1.0); Carbon Dioxide 26 mmol/L (22-30); Chloride 99 mmol/L (98-107); Glucose 255 mg/dL (74-99); Non-African American GFR(CKD) >90 (>60 ml/min/1.73 sqM); Potassium 3.9 mmol/L (3.5-5.1); Sodium 135 mmol/L (137-145); Total Bilirubin 0.6 mg/dL (0.2-1.3); Total Protein 7.2 g/dL (6.3-8.2)
--- NOTE | 2025-04-17 23:53 | US ---
EXAM: US Duplex Left Upper Extremity Veins CLINICAL HISTORY: ITS.REASON US Reason: pain/swelling TECHNIQUE: Real-time duplex ultrasound scan of the left upper extremity veins integrating B-mode two-dimensional vascular structure, Doppler spectral analysis, color flow Doppler imaging and compression. COMPARISON: No previous studies. FINDINGS: Deep veins: Unremarkable. No deep venous thrombosis of the left upper extremity deep venous system. Superficial veins: Unremarkable. No thrombus in the visualized basilic and cephalic veins. Soft tissues: Soft tissues are unremarkable. IMPRESSION: No deep venous thrombosis of the left upper extremity.
[2025-04-18] MEDS: KETOROLAC 15 MG/ML 1 ML VIAL IVP STA (00:35)
[2025-04-18] MEDS: MORPHINE SULFATE 2 MG/ML SYRINGE IVP STA (00:36)
--- NOTE | 2025-04-18 00:39 | ED ---
Extremity Problem HPI - General Chief complaint: Extremity Problem,Nontraumatic Stated complaint: arm injury Time Seen by Provider: 04/17/25 22:03 Source: patient Mode of arrival: ambulatory Limitations: no limitations - History of Present Illness Initial comments: 39-year-old male with chief complaint of left wrist pain. Pain for the last 3 days. Patient denies any injury or trauma. 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 He states that he has had progressive increase in pain and swelling to the wrist. He is getting some numbness and tingling in his hand. Pain does radiate up from the wrist of his arm. No fever or chills. No break in the skin. He states he was seen at [facility] when the pain started and had an x-ray performed. - Related Data Home Medications Medication Instructions Recorded Confirmed Pantoprazole Sodium [Protonix] 20 mg PO DAILY 03/23/25 03/23/25 traZODone HCL 150 mg PO HS 03/23/25 03/23/25 Previous Rx's Medication Instructions Recorded Docusate [Colace] 100 mg PO BID #60 cap 03/26/25 HYDROcodone/APAP 5-325MG [Eddy 1 tab PO Q6HR PRN 3 Days #12 tab 03/26/25 5-325] Nicotine 14Mg/24Hr Patch [Habitrol] 1 patch TRANSDERM DAILY #7 patch 03/26/25 HYDROcodone/APAP 7.5-325MG [Eddy 1 tab PO Q6HR PRN 3 Days #12 tab 04/18/25 7.5-325] Allergies Allergy/AdvReac Type Severity Reaction Status Date / Time No Known Allergies Allergy Verified 04/19/25 08:17 Review of Systems ROS Statement: Those systems with pertinent positive or pertinent negative responses have been documented in the HPI. ROS Other: All systems not noted in ROS Statement are negative. Past Medical History Past Medical History: GERD/Reflux History of Any Multi-Drug Resistant Organisms: None Reported Past Surgical History: No Surgical Hx Reported Past Psychological History: No Psychological Hx Reported Smoking Status: Current every day smoker Past Alcohol Use History: None Reported Past Drug Use History: Marijuana - Past Family History Mother Family Medical History: No Reported History General Exam Limitations: no limitations General appearance: alert, in no apparent distress Head exam: Present: atraumatic, normocephalic, normal inspection Eye exam: Present: normal appearance, EOMI Neck exam: Present: normal inspection. Absent: meningismus Respiratory exam: Absent: respiratory distress Cardiovascular Exam: Present: regular rate Left Hand Wrist exam: Present: tenderness, swelling. Absent: full ROM (Secondary to pain), deformity Vascular: Absent: vascular compromise Neurological exam: Present: alert, oriented X3 Psychiatric exam: Present: normal affect, normal mood Skin exam: Present: warm, dry, normal color Course Vital Signs 04/17/25 04/18/25 21:59 00:49 Temperature 97.7 F 98.6 F Pulse Rate 93 62 Respiratory 18 18 Rate Blood Pressure 144/98 159/81 O2 Sat by Pulse 99 97 Oximetry Procedures - Orthopedic Splinting/Casting Injury #1 Side: left Upper Extremity Injury Location: wrist Upper Extremity Immobilizer: volar splint Medical Decision Making - Medical Decision Making Was pt. sent in by a medical professional or institution (, PA, AIRCRAFT INSTRUMENT REPAIRER, urgent care, hospital, or longterm...) When possible be specific @ -No Did you speak to anyone other than the patient for history (EMS, parent, family, police, friend...)? What history was obtained from this source @ -No Did you review nursing and triage notes (agree or disagree)? Why? @ -I reviewed and agree with nursing and triage notes Were old charts reviewed (outside hosp., previous admission, EMS record, old EKG, old radiological studies, urgent care reports/EKG's, longterm records)? Report findings @ -No old charts were reviewed Differential Diagnosis (chest pain, altered mental status, abdominal pain women, abdominal pain men, vaginal bleeding, weakness, fever, dyspnea, syncope, headache, dizziness, GI bleed, back pain, seizure, CVA, palpatations, mental health, musculoskeletal)? @ -Differential Musculoskeletal Muscular strain, contusion, ligament sprain, fracture, arthritis, septic arthritis, bursitis, cellulitis, muscle spasm, nerve compression, DVT, arterial occlusion, herpes zoster, electrolyte abnormality, tumor.... This is not meant to be in all inclusive list EKG interpreted by me (3pts min.). @ -As above X-rays interpreted by me (1pt min.). @ -X-ray shows mild to moderate osteoarthritic changes about the left wrist joint CT interpreted by me (1pt min.). @ -None done U/S interpreted by me (1pt. min.). @ -Ultrasound negative for DVT What testing was considered but not performed or refused? (CT, X-rays, U/S, labs)? Why? @ -None What meds were considered but not given or refused? Why? @ -None Did you discuss the management of the patient with other professionals (professionals i.e. DrKapil, PA, AIRCRAFT INSTRUMENT REPAIRER, lab, RT, psych nurse, social service worker, hand plate stacker, teacher, medical scientific officer, senior case manager)? Give summary @ -No Was smoking cessation discussed for >3mins.? @ -No Was critical care preformed (if so, how long)? @ -No Were there social determinants of health that impacted care today? How? (Homelessness, low income, unemployed, alcoholism, drug addiction, transportation, low edu. Level, literacy, decrease access to med. care, long-term, rehab)? @ -No Was there de-escalation of care discussed even if they declined (Discuss DNR or withdrawal of care, Hospice)? DNR status @ -No What co-morbidities impacted this encounter? (DM, HTN, Smoking, COPD, CAD, Cancer, CVA, ARF, Chemo, Hep., AIDS, mental health diagnosis, sleep apnea, morbid obesity)? @ -None Was patient admitted / discharged? Hospital course, mention meds given and route, prescriptions, significant lab abnormalities, going to OR and other pertinent info. @ -39-year-old male presenting with chief complaint of chief complaint of left wrist pain ongoing for 3 days. No injury or trauma. History and physical examination are conducted. He is neurovascularly intact. White count 10.93. Lactic acid 2.2. Creatinine kinase is low at 36. Patient is given pain medication. X-ray shows osteoarthritic changes and ultrasound is negative for DVT. On reassessment patient reports improvement in his pain. Likely due to overuse injury. He is placed in a volar splint and instructed to follow-up with orthopedics. Follow-up with PCP. Report back to ER with any new or worsening symptoms. Discussed return parameters and answered all questions. Patient conveyed verbal understanding and agreed to the plan. I discussed this case in detail with my attending Dr. Natarajan Undiagnosed new problem with uncertain prognosis? @ -No Drug Therapy requiring intensive monitoring for toxicity (Heparin, Nitro, Insulin, Cardizem)? @ -No Were any procedures done? @ -yes splint applied Diagnosis/symptom? @ -Overuse injury Acute, or Chronic, or Acute on Chronic? @ -Acute Uncomplicated (without systemic symptoms) or Complicated (systemic symptoms)? @ -uncomplicated Side effects of treatment? @ -No Exacerbation, Progression, or Severe Exacerbation? @ -No Poses a threat to life or bodily function? How? (Chest pain, [place], [place], pneumonia, PE, COPD, DKA, ARF, appy, cholecystitis, CVA, Diverticulitis, Homicidal, Suicidal, threat to staff... and all critical care pts) @ -Unlikely - Lab Data Result diagrams: 04/17/25 22:33 04/17/25 22:33 Lab Results 04/17/25 04/17/25 04/17/25 Range/Units 22:33 22:33 22:33 WBC 10.93 H (4.50-10.00) 10*3/uL RBC 4.14 L (4.40-5.60) 10*6/uL Hgb 13.4 (13.0-17.0) g/dL Hct 38.6 L (39.6-50.0) % MCV 93.2 (80.0-97.0) fL MCH 32.4 H (27.0-32.0) pg MCHC 34.7 (32.0-37.0) g/dL Plt Count 121 L (140-440) 10*3/uL MPV 13.7 H (9.5-12.2) fL Immature Gran % (Auto) 0.3 % Neutrophils % 72.7 % Lymphocytes % 16.8 % Monocytes % 8.8 % Eosinophils % 1.1 % Basophils % 0.3 % Immature Gran # 0.03 (0.00-0.04) 10*3/uL Neutrophils # 7.95 H (1.80-7.70) 10*3/uL Lymphocytes # 1.84 (0.90-5.00) 10*3/uL Monocytes # 0.96 (0.20-1.00) 10*3/uL Eosinophils # 0.12 (0.04-0.35) 10*3/uL Basophils # 0.03 (0.00-0.10) 10*3/uL Immature Plt Fraction 14.0 H (1.1-6.1) % Sodium 135 L (137-145) mmol/L Potassium 3.9 (3.5-5.1) mmol/L Chloride 99 (98-107) mmol/L Carbon Dioxide 26 (22-30) mmol/L Anion Gap 10 mmol/L BUN 14 (9-20) mg/dL Creatinine 0.91 (0.66-1.25) mg/dL Est GFR (CKD-EPI)AfAm >90 (>60 ml/min/1.73 sqM) Est GFR (CKD-EPI)NonAf >90 (>60 ml/min/1.73 sqM) Glucose 255 H (74-99) mg/dL Lactic Ac Sepsis Rflx Plasma Lactic Acid Serafin 2.2 H* (0.7-2.0) mmol/L Calcium 10.0 (8.4-10.2) mg/dL Total Bilirubin 0.6 (0.2-1.3) mg/dL AST 28 (17-59) U/L ALT 26 (4-49) U/L Alkaline Phosphatase 119 (38-126) U/L Creatine Kinase (55-170) U/L C-Reactive Protein 4.4 H (<1.0) mg/dL Total Protein 7.2 (6.3-8.2) g/dL Albumin 4.4 (3.5-5.0) g/dL 04/17/25 05// Range/Units 22:33 23:52 WBC (4.50-10.00) 10*3/uL RBC (4.40-5.60) 10*6/uL Hgb (13.0-17.0) g/dL Hct (39.6-50.0) % MCV (80.0-97.0) fL MCH (27.0-32.0) pg MCHC (32.0-37.0) g/dL Plt Count (140-440) 10*3/uL MPV (9.5-12.2) fL Immature Gran % (Auto) % Neutrophils % % Lymphocytes % % Monocytes % % Eosinophils % % Basophils % % Immature Gran # (0.00-0.04) 10*3/uL Neutrophils # (1.80-7.70) 10*3/uL Lymphocytes # (0.90-5.00) 10*3/uL Monocytes # (0.20-1.00) 10*3/uL Eosinophils # (0.04-0.35) 10*3/uL Basophils # (0.00-0.10) 10*3/uL Immature Plt Fraction (1.1-6.1) % Sodium (137-145) mmol/L Potassium (3.5-5.1) mmol/L Chloride (98-107) mmol/L Carbon Dioxide (22-30) mmol/L Anion Gap mmol/L BUN (9-20) mg/dL Creatinine (0.66-1.25) mg/dL Est GFR (CKD-EPI)AfAm (>60 ml/min/1.73 sqM) Est GFR (CKD-EPI)NonAf (>60 ml/min/1.73 sqM) Glucose (74-99) mg/dL Lactic Ac Sepsis Rflx Y Plasma Lactic Acid Serafin (0.7-2.0) mmol/L Calcium (8.4-10.2) mg/dL Total Bilirubin (0.2-1.3) mg/dL AST (17-59) U/L ALT (4-49) U/L Alkaline Phosphatase (38-126) U/L Creatine Kinase 36 L (55-170) U/L C-Reactive Protein (<1.0) mg/dL Total Protein (6.3-8.2) g/dL Albumin (3.5-5.0) g/dL Disposition Clinical Impression: Overuse injury Disposition: HOME SELF-CARE Condition: Good Instructions (If sedation given, give patient instructions): Paresthesia (ED), Arthralgia (ED) Additional Instructions: Follow-up with orthopedics. Report back to ER with any new or worsening symptoms. Motrin and Tylenol as needed for pain control. Prescriptions: HYDROcodone/APAP 7.5-325MG [Eddy 7.5-325] 1 tab PO Q6HR PRN 3 Days #12 tab PRN Reason: Pain Is patient prescribed a controlled substance at d/c from ED?: Yes When asked, does pt state using other controlled substances?: No If prescribed controlled substance>3 days was MAPS reviewed?: Prescribed <3 Days If opioid is for acute pain is fill amount 7 days or less?: Yes Referrals: None,Stated [Primary Care Provider] - 1-2 days Konstantin Pacheco MD [STAFF PHYSICIAN] - 1-2 days Time of Disposition: 00:39
[2025-04-18 00:51] VITALS: BP 159/81; PULSE 62; TEMP 98.6
== END 2025-04-18 00:49 | disposition home or self-care (01) ==
LOC: MERGE 21:55 → EC 21:55
DX: S69.92XA Unspecified injury of left wrist, hand and finger(s), initial encounter (principal); F17.200 Nicotine dependence, unspecified, uncomplicated; X58.XXXA Exposure to other specified factors, initial encounter; Y99.0 Civilian activity done for income or pay
CPT/HCPCS: 36415; 80053; 82550; 83605; 85025; 86140; 73110; 93971; 29125; 99284; 96374; 96375 ×3; J1100; J2270; J1171; J1885

== ENCOUNTER 2025-06-02 20:37 | Emergency (ER) | payer OTHER ==
[2025-06-02 20:50] VITALS: TEMP 98.4
--- NOTE | 2025-06-02 20:50 | ED ---
General Adult HPI - General Source: patient, family Mode of arrival: ambulatory Limitations: no limitations <Sofie Wilson - Last Filed: 06/02/25 20:50> - General Source: patient, RN notes reviewed, old records reviewed <Mirza Velazquez - Last Filed: 06/03/25 03:50> - General Stated complaint: High bloody sugar/Dizzy Time Seen by Provider: 06/02/25 20:50 - History of Present Illness Initial comments: Quick note: 39-year-old male presenting chief complaint of elevated blood sugar. States that he does not have a known history of diabetes by recently was found to be hyperglycemic and had an A1c of about 11. Was sent by his PCPs office because his blood sugar was over 500. He is feeling dizzy and has some blurred vision. No chest pain or difficulty breathing. No nausea or vomiting. (Sofie Wilson) 39-year-old male presents emergency department complaining of high blood sugar. Recently diagnosed with diabetes and started on metformin outpatient. Was following with PCP today and monitor red blood sugars too high and was sent here for further evaluation. He has no complaints other than chronic blurry vision which PCP and himself attribute to his previously undiagnosed diabetes. Also has been having intermittent lightheadedness for approximately a year which he also attributes to the undiagnosed diabetes. Blood sugars have been in the 300s. States he has been taking his medication. Denies any abdominal pain, nausea, vomiting, diarrhea, chest pain, shortness of breath, fevers. Presents for further evaluation at this time. Urgently seen as a quick note. (Mirza Velazquez) - Related Data Home Medications Medication Instructions Recorded Confirmed Pantoprazole Sodium [Protonix] 20 mg PO DAILY 03/23/25 03/23/25 traZODone HCL 150 mg PO HS 03/23/25 03/23/25 Previous Rx's Medication Instructions Recorded Docusate [Colace] 100 mg PO BID #60 cap 03/26/25 HYDROcodone/APAP 5-325MG [[place] 1 tab PO Q6HR PRN 3 Days #12 tab 03/26/25 5-325] Nicotine 14Mg/24Hr Patch [Habitrol] 1 patch TRANSDERM DAILY #7 patch 03/26/25 HYDROcodone/APAP 7.5-325MG [[place] 1 tab PO Q6HR PRN 3 Days #12 tab 04/18/25 7.5325] Allergies Allergy/AdvReac Type Severity Reaction Status Date / Time No Known Allergies Allergy Verified 06/02/25 20:50 Review of Systems ROS Other: All systems not noted in ROS Statement are negative. <Sofie Wilson - Last Filed: 06/02/25 20:50> ROS Other: All systems not noted in ROS Statement are negative. <Mirza Velazquez - Last Filed: 06/03/25 03:50> ROS Statement: Those systems with pertinent positive or pertinent negative responses have been documented in the HPI. Review of Systems: CONST: Denies fever EYES: Denies blurry vision ENT: Denies nasal congestion C/V: Denies Chest pain RESP: Denies shortness of breath GI: Denies abdominal pain : Denies dysuria SKIN: Denies rash. MSK: Denies joint pain. NEURO: Denies headache (Mirza Velazquez) Past Medical History Past Medical History: GERD/Reflux, Osteoarthritis (OA), Pneumonia Additional Past Medical History / Comment(s): Ileus, pancreatitis- alcohol induced, ETOH History of Any Multi-Drug Resistant Organisms: None Reported Past Surgical History: No Surgical Hx Reported Additional Past Surgical History / Comment(s): Pilonidal cyst surgery X3, oral surgery. Past Anesthesia/Blood Transfusion Reactions: No Reported Reaction Past Alcohol Use History: None Reported, Occasional - Past Family History Mother Family Medical History: No Reported History <Sofie Wilson - Last Filed: 06/02/25 20:50> General Exam <Sofie Wilson - Last Filed: 06/02/25 20:50> <Mirza Velazquez - Last Filed: 06/03/25 03:50> - General Exam Comments Initial Comments: Visual Physical Exam Vital signs reviewed General: Well-appearing, nontoxic, no acute distress. Head: Normocephalic, atraumatic Eyes: PERRLA, EOMI ENT: Airway patent Chest: Nonlabored breathing Skin: No visual rash, normal skin tone Neuro: Alert and oriented 3 Musculoskeletal: No gross abnormalities (Sofie Wilson) General: Appears in no acute distress. HEAD: Normal with no signs of head trauma. EYES: PERRLA, EOMI, conjunctiva normal, no discharge. ENT: Hearing grossly intact, normal oropharynx. RESPIRATORY: Clear breath sounds bilaterally. No wheezes, rales, or rhonchi. C/V: Regular rate and rhythm. S1 and S2 auscultated, no edema, peripheral pulses 2+ and intact throughout ABD: Abd is soft, nontender, nondistended EXT: Normal range of motion, no obvious deformity SKIN: No rashes or lesions observed on exposed skin. NEURO: Alert and oriented x 4. Cranial nerves II-XII intact. No focal sensory or strength deficits. (Mirza Velazquez) Course Vital Signs 06/02/25 06/03/25 20:49 00:00 Temperature 98.4 F Pulse Rate 76 61 Respiratory 18 16 Rate Blood Pressure 152/89 122/70 O2 Sat by Pulse 98 97 Oximetry Medical Decision Making <Sofie Wilson - Last Filed: 06/02/25 20:50> - Lab Data Result diagrams: 06/02/25 22:37 06/02/25 22:37 - EKG Data -: EKG Interpreted by Me <Mirza Velazquez - Last Filed: 06/03/25 03:50> - Medical Decision Making I performed the quick note portion of this visit, electronically signed Sofie Wilson PA-C (Sofie Wilson) Was pt. sent in by a medical professional or institution ([facility], QUAL RESEARCH MANAGER, urgent care, hospital, or shelter...) When possible be specific @ -Sent by PCP for high blood sugar Did you speak to anyone other than the patient for history (EMS, parent, family, police, friend...)? What history was obtained from this source @ -No Did you review nursing and triage notes (agree or disagree)? Why? @ -I reviewed and agree with nursing and triage notes Were old charts reviewed (outside hosp., previous admission, EMS record, old EKG, old radiological studies, urgent care reports/EKG's, shelter records)? Report findings @ -No old charts were reviewed Differential Diagnosis (chest pain, altered mental status, abdominal pain women, abdominal pain men, vaginal bleeding, weakness, fever, dyspnea, syncope, headache, dizziness, GI bleed, back pain, seizure, CVA, palpatations, mental health, musculoskeletal)? @ -DKA, hyperglycemia, electrolyte abnormality. This list is not all- inclusive. EKG interpreted by me (3pts min.). @ -As above X-rays interpreted by me (1pt min.). @ -None done CT interpreted by me (1pt min.). @ -None done U/S interpreted by me (1pt. min.). @ -None done What testing was considered but not performed or refused? (CT, X-rays, U/S, labs)? Why? @ -None What meds were considered but not given or refused? Why? @ -None Did you discuss the management of the patient with other professionals (professionals i.e. , PA, QUAL RESEARCH MANAGER, lab, RT, psych nurse, social science research assistant, senior sales representative, teacher, chief compliance officer, case management director)? Give summary @ -No Was smoking cessation discussed for >3mins.? @ -No Was critical care preformed (if so, how long)? @ -No Were there social determinants of health that impacted care today? How? (Homelessness, low income, unemployed, alcoholism, drug addiction, transportation, low edu. Level, literacy, decrease access to med. care, shelter, rehab)? @ -No Was there de-escalation of care discussed even if they declined (Discuss DNR or withdrawal of care, Hospice)? DNR status @ -No What co-morbidities impacted this encounter? (DM, HTN, Smoking, COPD, CAD, Cancer, CVA, ARF, Chemo, Hep., AIDS, mental health diagnosis, sleep apnea, morbid obesity)? @ -Newly diagnosed diabetes Was patient admitted / discharged? Hospital course, mention meds given and route, prescriptions, significant lab abnormalities, going to OR and other pertinent info. @ -Patient presents emergency department for hyperglycemia in the setting of diabetes. Will obtain basic labs. Vitals are within acceptable limits. He will be given a 2 L fluid bolus. He has no other symptoms. EKG shows no signs of acute ischemia. Labs are remarkable for a hyperglycemia of 334. After 2 L of fluid, it is 294. No evidence of DKA. On reevaluation, patient remains asymptomatic. I believe is safe for him to be discharged home. Diagnosis hyperglycemia in the setting of diabetes. Recommend follow-up with his PCP and continue compliance with metformin. He was in agreement this plan. I instructed the patient to follow up with their PCP in the next 1-3 days. I explained that the patient should return to the emergency department if they experience any worsening symptoms. Strict return precautions were discussed with the patient. The patient expressed understanding of these instructions. I answered all questions that the patient had. The patient was discharged home in good condition with their prescriptions and follow up information. Undiagnosed new problem with uncertain prognosis? @ -No Drug Therapy requiring intensive monitoring for toxicity (Heparin, Nitro, Insulin, Cardizem)? @ -No Were any procedures done? @ -No Diagnosis/symptom? @ -Hyperglycemia in the setting of diabetes Acute, or Chronic, or Acute on Chronic? @ -Acute Uncomplicated (without systemic symptoms) or Complicated (systemic symptoms)? @ -Uncomplicated Side effects of treatment? @ -No Exacerbation, Progression, or Severe Exacerbation? @ -No Poses a threat to life or bodily function? How? (Chest pain, [place], SC, pneumonia, PE, COPD, DKA, ARF, appy, cholecystitis, CVA, Diverticulitis, Homicidal, Suicidal, threat to staff... and all critical care pts) @ -Unlikely at this time (Mirza Velazquez) - Lab Data Lab Results 06/02/25 06/02/25 06/02/25 Range/Units 20:08 22:37 22:37 WBC 8.11 (4.50-10.00) 10*3/uL RBC 4.03 L (4.40-5.60) 10*6/uL Hgb 12.7 L (13.0-17.0) g/dL Hct 37.2 L (39.6-50.0) % MCV 92.3 (80.0-97.0) fL MCH 31.5 (27.0-32.0) pg MCHC 34.1 (32.0-37.0) g/dL Plt Count 147 (140-440) 10*3/uL MPV 13.4 H (9.5-12.2) fL Immature Gran % (Auto) 0.5 % Neutrophils % 61.2 % Lymphocytes % 28.7 % Monocytes % 7.6 % Eosinophils % 1.5 % Basophils % 0.5 % Immature Gran # 0.04 (0.00-0.04) 10*3/uL Neutrophils # 4.96 (1.80-7.70) 10*3/uL Lymphocytes # 2.33 (0.90-5.00) 10*3/uL Monocytes # 0.62 (0.20-1.00) 10*3/uL Eosinophils # 0.12 (0.04-0.35) 10*3/uL Basophils # 0.04 (0.00-0.10) 10*3/uL Immature Plt Fraction 15.7 H (1.1-6.1) % VBG pH (7.31-7.41) VBG pCO2 (37-51) mmHg VBG HCO3 (24-28) mmol/L Sodium 135 L (137-145) mmol/L Potassium 4.1 (3.5-5.1) mmol/L Chloride 96 L (98-107) mmol/L Carbon Dioxide 28 (22-30) mmol/L Anion Gap 11 mmol/L BUN 12 (9-20) mg/dL Creatinine 0.79 (0.66-1.25) mg/dL Est GFR (CKD-EPI)AfAm >90 (>60 ml/min/1.73 sqM) Est GFR (CKD-EPI)NonAf >90 (>60 ml/min/1.73 sqM) Glucose 334 H (74-99) mg/dL POC Glucose (mg/dL) (70-110) mg/dL POC Glu Um Specialist ID Plasma Lactic Acid Serafin (0.7-2.0) mmol/L Calcium 9.6 (8.4-10.2) mg/dL Total Bilirubin 0.6 (0.2-1.3) mg/dL AST 24 (17-59) U/L ALT 25 (4-49) U/L Alkaline Phosphatase 169 H (38-126) U/L Total Protein 6.7 (6.3-8.2) g/dL Albumin 4.4 (3.5-5.0) g/dL Lipase 43 (23-300) U/L Urine Color Colorless Urine Appearance Clear (Clear) Urine pH 5.5 (5.0-8.0) Ur Specific [place] 1.042 H (1.001-1.035) Urine Protein Negative (Negative) Urine Glucose (UA) 4+ H (Negative) Urine Ketones Negative (Negative) Urine Blood Negative (Negative) Urine Nitrite Negative (Negative) Urine Bilirubin Negative (Negative) Urine Urobilinogen <2.0 (<2.0) mg/dL Ur Leukocyte Esterase Negative (Negative) Serum Alcohol <10 mg/dL Acetone, Qual Negative (Negative) 06/02/25 06/02/25 06/03/25 Range/Units 22:37 23:04 00:57 WBC (4.50-10.00) 10*3/uL RBC (4.40-5.60) 10*6/uL Hgb (13.0-17.0) g/dL Hct (39.6-50.0) % MCV (80.0-97.0) fL MCH (27.0-32.0) pg MCHC (32.0-37.0) g/dL Plt Count (140-440) 10*3/uL MPV (9.5-12.2) fL Immature Gran % (Auto) % Neutrophils % % Lymphocytes % % Monocytes % % Eosinophils % % Basophils % % Immature Gran # (0.00-0.04) 10*3/uL Neutrophils # (1.80-7.70) 10*3/uL Lymphocytes # (0.90-5.00) 10*3/uL Monocytes # (0.20-1.00) 10*3/uL Eosinophils # (0.04-0.35) 10*3/uL Basophils # (0.00-0.10) 10*3/uL Immature Plt Fraction (1.1-6.1) % VBG pH 7.44 H (7.31-7.41) VBG pCO2 41 (37-51) mmHg VBG HCO3 28 (24-28) mmol/L Sodium (137-145) mmol/L Potassium (3.5-5.1) mmol/L Chloride (98-107) mmol/L Carbon Dioxide (22-30) mmol/L Anion Gap mmol/L BUN (9-20) mg/dL Creatinine (0.66-1.25) mg/dL Est GFR (CKD-EPI)AfAm (>60 ml/min/1.73 sqM) Est GFR (CKD-EPI)NonAf (>60 ml/min/1.73 sqM) Glucose (74-99) mg/dL POC Glucose (mg/dL) 294 H (70-110) mg/dL POC Glu Um Specialist ID CHRISTIANNE SANTANAE Plasma Lactic Acid Serafin 0.9 (0.7-2.0) mmol/L Calcium (8.4-10.2) mg/dL Total Bilirubin (0.2-1.3) mg/dL AST (17-59) U/L ALT (4-49) U/L Alkaline Phosphatase (38-126) U/L Total Protein (6.3-8.2) g/dL Albumin (3.5-5.0) g/dL Lipase (23-300) U/L Urine Color Urine Appearance (Clear) Urine pH (5.0-8.0) Ur Specific [place] (1.001-1.035) Urine Protein (Negative) Urine Glucose (UA) (Negative) Urine Ketones (Negative) Urine Blood (Negative) Urine Nitrite (Negative) Urine Bilirubin (Negative) Urine Urobilinogen (<2.0) mg/dL Ur Leukocyte Esterase (Negative) Serum Alcohol mg/dL Acetone, Qual (Negative) - EKG Data EKG Comments: 12-lead Electrocardiogram Interpretation Note EKG was reviewed and interpreted by myself. 12-lead ECG performed at 2232 is interpreted by me as revealing sinus bradycardia at a rate of 54 beats per minute. [place] is normal. [place] interval is 153 ms, QRS durations 105 ms, QTc is 420 ms.. There were no ST or T wave abnormalities to suggest myocardial ischemia or injury. R wave progression across the precordium was satisfactory. By my interpretation this EKG is non-diagnostic for acute ischemia. (Mirza Velazquez) Disposition <Sofie Wilson - Last Filed: 06/02/25 20:50> Is patient prescribed a controlled substance at d/c from ED?: No Time of Disposition: 01:03 <Mirza Velazquez - Last Filed: 06/03/25 03:50> Clinical Impression: Hyperglycemia due to diabetes mellitus Disposition: HOME SELF-CARE Condition: Good Instructions (If sedation given, give patient instructions): Diabetic Hypergly cemia (ED) Additional Instructions: follow up with pcp for continued blood glucose monitoring. return to er if worsening symptoms. Referrals: Nonstaff,Physician [Primary Care Provider] - 1-2 days Forms: Area PCPs
[2025-06-02 23:01] LABS: Basophils # (A) 0.04 10*3/uL (0.00-0.10); Basophils % (A) 0.5 %; Eosinophils # (A) 0.12 10*3/uL (0.04-0.35); Eosinophils % (A) 1.5 %; HCT 37.2 % (39.6-50.0); HGB 12.7 g/dL (13.0-17.0); Immature Platelet Fraction 15.7 % (1.1-6.1); Lymphocytes # (A) 2.33 10*3/uL (0.90-5.00); Lymphocytes % (A) 28.7 %; MCH 31.5 pg (27.0-32.0); MCHC 34.1 g/dL (32.0-37.0); MCV 92.3 fL (80.0-97.0); Monocytes # (A) 0.62 10*3/uL (0.20-1.00); Monocytes % (A) 7.6 %; Neutrophils # (A) 4.96 10*3/uL (1.80-7.70); Neutrophils % (A) 61.2 %; Platelet Count 147 10*3/uL (140-440); RBC 4.03 10*6/uL (4.40-5.60); RDW 12.1 % (11.5-14.5); WBC 8.11 10*3/uL (4.50-10.00)
[2025-06-02] MEDS: SODIUM CHLORIDE 0.9% 1,000 ML IV SCH (23:15)
[2025-06-02 23:17] LABS: ALT 25 U/L (4-49); AST 24 U/L (17-59); African American GFR (CKD) >90 (>60 ml/min/1.73 sqM); Albumin 4.4 g/dL (3.5-5.0); Alkaline Phosphatase 169 U/L (38-126); Anion Gap 11 mmol/L; Blood Urea Nitrogen 12 mg/dL (9-20); Calcium 9.6 mg/dL (8.4-10.2); Carbon Dioxide 28 mmol/L (22-30); Chloride 96 mmol/L (98-107); Glucose 334 mg/dL (74-99); Lipase 43 U/L (23-300); Non-African American GFR(CKD) >90 (>60 ml/min/1.73 sqM); Potassium 4.1 mmol/L (3.5-5.1); Sodium 135 mmol/L (137-145); Total Protein 6.7 g/dL (6.3-8.2)
[2025-06-02 23:20] LABS: Bilirubin,Urine Negative (Negative); Blood,Urine Negative (Negative); Color,Urine Colorless; Glucose,Urine (UA) 4+ (Negative); Ketones,Urine Negative (Negative); Leukocyte Esterase,Urine Negative (Negative); Nitrite,Urine Negative (Negative); PH, Urine 5.5 (5.0-8.0); Protein,Urine Negative (Negative); Specific Gravity,Urine 1.042 (1.001-1.035); Urobilinogen,Urine <2.0 mg/dL (<2.0)
[2025-06-02 23:41] LABS: VBG HCO3 28.0 mmol/L (24-28); VBG PCO2 41.0 mmHg (37-51); VBG PH 7.44 (7.31-7.41)
[2025-06-03 00:14] VITALS: BP 122/70; PULSE 61; RESP 16
[2025-06-03 00:59] LABS: Glucose,Whole Blood 294 mg/dL (70-110)
== END 2025-06-03 01:09 | disposition home or self-care (01) ==
LOC: EC 20:37
DX: E11.65 Type 2 diabetes mellitus with hyperglycemia (principal)
CPT/HCPCS: 36415; 80053; 80320; 81003; 82009; 82803; 83605; 83690; 85025; 93005; 96360; 96361; 99285